=== PATIENT | female | born 1935 | race Caucasian/White ===

== ENCOUNTER → 2016-08-20 | Outpatient (CLI) | payer MEDICARE, OTHER ==
[~2016-08-20] MED LIST: ALLO100T PO; AMIO20TA PO; AMLO10TA2 PO; AMLO5TAB2 PO; ATEN25TA PO; BACITAB3 PO; CEFD1CAP8 PO; COLA100C3 PO; ENOX30IN3 SC; FERR325T PO; FURO20TA2 PO; FURO8INJ IM; HYDR-4266 PO; INSUHUMDS SC; IPRASOL4 INH; ISOS30TA4 PO; LASI20TA PO; LEVO25TA5 PO; LIDOCAINE 1% MDV 20ML VIAL As Ordered ONE; PANT40TA2 PO; PROC1INJ2 IV; TIOT18INH INH; TORS20TA2 PO; VITA100066 PO; [UNRECOGNIZED DRUG - CODE] IV
--- NOTE | 2016-08-20 14:13 | REP ---
DIGITAL DIAGNOSTIC UNILATERAL RIGHT BREAST MAMMOGRAPHY WITH CAD: HISTORY: Patient status post needle biopsy. Marker clip placement views. Comparison mammography July 16 and July 23, 2016. FINDINGS: The marker clip did not deploy during the procedure. Thus it is not on the post marker clip placement views. The needle biopsy tract is visualized however documenting that sampling was performed at the appropriate position in the right breast. The biopsy target was not completely removed. The mammogram is otherwise unremarkable. There is no evidence of hematoma. IMPRESSION: Marker clip failed to deploy. A portion of the biopsy target remains post biopsy. This mammogram was interpreted with the aid of an FDA-approved computer-aided detection system. Signed by Jose Avila MD 08/20/2016 03:18 P
--- NOTE | 2016-08-22 08:46 | REP ---
STEREOTACTIC RIGHT BREAST BIOPSY: The procedure as performed under the direct supervision of Dr. Avila. The patient has a history of an irregular spiculated nodule in the upper outer quadrant of the right breast seen on a previous mammogram from [facility] performed on 07/23/2016. The risks and benefits of the procedure were explained to the patient and informed consent was obtained. A lateral medial approach was utilized. The nodule was localized using stereotactic mammographic guidance. The skin was prepped and draped in a sterile fashion. 1% lidocaine was used as a local anesthetic. A 10-gauge suction assisted Mammotome needle was inserted and six core biopsy samples were obtained. A marker clips was not placed due to technical error. The patient tolerated the procedure well and there were no immediate complications. After the appropriate amount of monitored convalescence, the patient was discharged from the department. Reviewed by MARILYNN Dawn 08/22/2016 03:48 PEdited and Signed by Jose Avila MD 08/22/2016 03:56 P
== END ==
LOC: M RADPRO 12:15
PROVIDERS: ATTEND Surgery
DX: C50.911 Malignant neoplasm of unspecified site of right female breast (principal); Z79.899 Other long term (current) drug therapy; I12.9 Hypertensive chronic kidney disease with stage 1 through stage 4 chronic kidney disease, or unspecified chronic kidney disease; E11.9 Type 2 diabetes mellitus without complications; E78.00 Pure hypercholesterolemia, unspecified; N18.9 Chronic kidney disease, unspecified

== ENCOUNTER → 2016-09-13 | Day surgery (SDC) | payer MEDICARE, OTHER ==
[~2016-09-13] VITALS: Ht 154.9 cm; Wt 79.4 kg
[~2016-09-13] MED LIST changes: +ACETAMINOPHEN TAB 650MG DOSE (2X325MG) PO PRN; +ATENOLOL 25 MG TAB PO ONE; +BUPIVACAINE HCL 0.25% 30 ML VIAL As Ordered ONE; +FISH1000 PO; +HYDROmorphone HCL 1 MG/ML SYRINGE (J1170) IV PRN; +LIDOCAINE 1% SDV INJ 30 ML VIAL As Ordered ONE; +LIDOCAINE 2% INJ 100 MG/5 ML SDV (FOR ANES.) As Ordered ONE; +LR 1,000 ML IV SCH; +METOCLOPRAMIDE INJ 10MG/2ML VIAL (J2765) IV PRN; +MIDAZOLAM INJ 2 MG/2 ML VIAL (J2250) As Ordered ONE; +NORCO, ANEXSIA 5/325MG TABLET (HYDROcodone/ACETAMINOPHEN) PO PRN; +ONDANSETRON 4MG/2ML VIAL (J2405) As Ordered ONE; +ONDANSETRON 4MG/2ML VIAL (J2405) IV PRN; +PERCOCET 5MG/325MG TAB PO PRN; +PHENYLephrine HCL 500 MCG/5 ML (100MCG/ML) SYRINGE (J2370) As Ordered ONE; +POTA10TA34 PO; +PRAV40TA PO; +PROPOFOL 200 MG/20 ML VIAL As Ordered ONE; +VITA100037 PO; +dexameTHASONE 4 MG/ML 1ML VIAL (J1100) As Ordered ONE; +ePHEDrine SULFATE 25 MG/5 ML(5MG/ML) SYRINGE As Ordered ONE; +fentaNYL 100 MCG/2 ML INJECTION (J3010) As Ordered ONE; +fentaNYL 100 MCG/2 ML INJECTION (J3010) IV PRN
[2016-09-13 07:45] VITALS: BP 152/74
[2016-09-13 07:59] LABS: MEAN CORPUSCULAR HEMOGLOBIN 33.4 pg (27.0-33.0); MEAN CORPUSCULAR HGB CONC 32.6 g/dl (32.0-36.5); MEAN CORPUSCULAR VOLUME 102.4 fl (80.0-96.0); RED CELL DISTRIBUTION WIDTH 14.9 % (11.5-14.5); WHITE BLOOD COUNT 9.3 K/mm3 (4.0-10.0)
[2016-09-13 08:30] LABS: CALCIUM LEVEL 8.8 MG/DL (8.8-10.2); CREATININE FOR GFR 1.75 MG/DL (0.55-1.02); GLOMERULAR FILTRATION RATE 29.7 (>32); POTASSIUM SERUM 3.9 MEQ/L (3.5-5.1)
--- NOTE | 2016-09-13 13:02 | ECGEPIP ---
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
[2016-09-13 13:35] VITALS: BP 165/76
--- NOTE | 2016-09-13 14:11 | REP ---
Specimen radiography, single view. History: Patient is status post needle localization directed excisional biopsy. Findings: Specimen radiographic view demonstrates the localizer wire transmitting a centrally located area of increased parenchymal density with slight spiculation. No microcalcifications were seen in this mammographic target. There are two or three microcalcifications or vascular calcifications eccentrically located in the breast specimen. Impression: Specimen radiographic findings as above. No microcalcifications were seen in situ in the original target. Signed by Jose Avila MD 09/13/2016 03:08 P
--- NOTE | 2016-09-13 16:26 | REP ---
RIGHT BREAST LOCALIZATION: The procedure was performed under the direct supervision of Dr. Avila. The patient has a history of an irregular spiculated nodule in the upper outer quadrant of the right breast seen on a previous mammogram from [facility] performed on 07/23/2016. The patient had a stereotactic right breast biopsy performed on 08/20/2016. A marker clip was placed however, failed to deploy. The risks and benefits of the procedure were explained to the patient and informed consent was obtained. A lateral medial approach was utilized. The nodule was localized using mammographic guidance. The skin was prepped and draped in a sterile fashion 1% Xylocaine was used as a local anesthetic. A 5 cm [place] needle wire system was inserted. Followup mammographic images demonstrate good needle placement. The patient tolerated the procedure well and there were no immediate complications. Reviewed by MARILYNN Dawn 09/13/2016 04:29 PEdited and Signed by Jose Avila MD 09/13/2016 04:51 P
--- NOTE | 2016-09-14 05:42 | RO ---
DATE OF PROCEDURE: 09/13/2016 PREOPERATIVE DIAGNOSIS: Infiltrating ductal carcinoma right breast. POSTOPERATIVE DIAGNOSIS: Infiltrating ductal carcinoma right breast. PROCEDURE PERFORMED: Needle-localized right partial mastectomy. SURGEON: Dr. Arthur Acosta. CONVEYOR LOADER: Dr. Bains. ANESTHESIA: General. ESTIMATED BLOOD LOSS: INDICATIONS FOR PROCEDURE: Patient is an 80-year-old woman who on routine mammography was found to have a density in the lateral aspect of the right breast. A biopsy was performed using ultrasound guidance. A marker clip was not placed due to technical difficulties. The biopsy confirmed infiltrating ductal carcinoma and she is now for a needle-localized partial mastectomy. OPERATIVE PROCEDURE: The patient was taken initially to the x-ray department where she had a localizing wire placed. This entered the lateral aspect of the right breast and was directed medially. This was inserted at approximately the 9 o'clock position. The patient was taken to the operating room where she was placed under general endotracheal anesthesia. The patient's right breast and chest wall including the localizing wire were all prepped and draped sterilely. A skin marker was used to outline a radial incision beginning just lateral to the guidewire insertion site and extending toward the edge of the areola. This was approximately 5 cm in length. The skin was incised. The dissection was then carried out primarily using the electrocautery. Dissection proceeded superiorly and inferiorly to elevate the skin off of the underlying breast tissue. The incision was then deepened toward the chest wall and an approximately 6 x 5 x 2.5 cm mass with breast tissue completely surrounding the localizing wire was excised. This was marked using the vector margin marker system. A specimen mammogram was obtained with the [employer] device. The nodule was quite subtle following her biopsy. There did appear to be some slight increased density along the shaft of the localizing wire identified on the image. The specimen was then sent for permanent pathology. The wound was inspected and hemostasis was ensured with electrocautery. The breast tissue was elevated at the level of the pectoral fascia superiorly and inferiorly to allow this to be approximated across the wound. Hemostasis was ensured. The breast tissue was approximated with multiple interrupted simple buried sutures of #2-0 Vicryl. The skin edges were approximated with #4-0 Vicryl and a running subcuticular suture of #4-0 Vicryl. Approximately 10 mL of 0.25% Marcaine were infiltrated along the skin edges. Steri-Strips were applied followed by a bulky bandage. The patient tolerated the procedure well. She was awakened in the operating room, extubated and moved to the recovery room in stable condition. KIM
== END | disposition home or self-care (01) ==
LOC: M SDC 06:54
PROVIDERS: ATTEND Surgery
DX: C50.911 Malignant neoplasm of unspecified site of right female breast (principal); E03.9 Hypothyroidism, unspecified; E78.00 Pure hypercholesterolemia, unspecified; I12.9 Hypertensive chronic kidney disease with stage 1 through stage 4 chronic kidney disease, or unspecified chronic kidney disease; E11.9 Type 2 diabetes mellitus without complications; N18.9 Chronic kidney disease, unspecified; Z79.899 Other long term (current) drug therapy; Z86.73 Personal history of transient ischemic attack (TIA), and cerebral infarction without residual deficits; Z96.653 Presence of artificial knee joint, bilateral
CPT/HCPCS: 19301; 36415; 72265; 76098; 80048; 85027; 88307; 93005; J1100; J2250; J2370; J2405; J3010

== ENCOUNTER → 2016-10-18 | Outpatient (REF) | payer MEDICARE, OTHER ==
[~2016-10-18] MED LIST changes: -ACETAMINOPHEN TAB 650MG DOSE (2X325MG) PO PRN; +AMIO200T PO; -AMIO20TA PO; -ATENOLOL 25 MG TAB PO ONE; +BACITAB PO; -BACITAB3 PO; -BUPIVACAINE HCL 0.25% 30 ML VIAL As Ordered ONE; -COLA100C3 PO; +COLA100C5 PO; +FERR1TAB8 PO; -FERR325T PO; +HYDR-3910 PO; -HYDR-4266 PO; -HYDROmorphone HCL 1 MG/ML SYRINGE (J1170) IV PRN; -LIDOCAINE 1% MDV 20ML VIAL As Ordered ONE; -LIDOCAINE 1% SDV INJ 30 ML VIAL As Ordered ONE; -LIDOCAINE 2% INJ 100 MG/5 ML SDV (FOR ANES.) As Ordered ONE; -LR 1,000 ML IV SCH; -METOCLOPRAMIDE INJ 10MG/2ML VIAL (J2765) IV PRN; -MIDAZOLAM INJ 2 MG/2 ML VIAL (J2250) As Ordered ONE; -NORCO, ANEXSIA 5/325MG TABLET (HYDROcodone/ACETAMINOPHEN) PO PRN; -ONDANSETRON 4MG/2ML VIAL (J2405) As Ordered ONE; -ONDANSETRON 4MG/2ML VIAL (J2405) IV PRN; -PERCOCET 5MG/325MG TAB PO PRN; -PHENYLephrine HCL 500 MCG/5 ML (100MCG/ML) SYRINGE (J2370) As Ordered ONE; -POTA10TA34 PO; +POTA10TA67 PO; -PROPOFOL 200 MG/20 ML VIAL As Ordered ONE; -VITA100037 PO; +VITA100067 PO; -dexameTHASONE 4 MG/ML 1ML VIAL (J1100) As Ordered ONE; -ePHEDrine SULFATE 25 MG/5 ML(5MG/ML) SYRINGE As Ordered ONE; -fentaNYL 100 MCG/2 ML INJECTION (J3010) As Ordered ONE; -fentaNYL 100 MCG/2 ML INJECTION (J3010) IV PRN
[2016-10-19 10:09] LABS: CARCINOEMBRYONIC ANTIGEN 3.4 NG/ML (<2.5)
== END ==
LOC: M LAB REF 16:31
PROVIDERS: ATTEND Internal Medicine Medical Oncology
DX: C50.919 Malignant neoplasm of unspecified site of unspecified female breast (principal)

== ENCOUNTER → 2017-06-03 | Outpatient (REF) ==
[2017-06-03 13:36] LABS: HEMATOCRIT 28.7 % (36.0-47.0); HEMOGLOBIN 9.1 g/dl (12.0-16.0); MEAN CORPUSCULAR HEMOGLOBIN 31.7 pg (27.0-33.0); MEAN CORPUSCULAR HGB CONC 31.7 g/dl (32.0-36.5); PLATELET COUNT, AUTOMATED 208 10^3/uL (150-450); RED BLOOD COUNT 2.87 10^6/uL (4.00-5.40)
[2017-06-03 14:08] LABS: ESTIMATED AVERAGE GLUCOSE 134 MG/DL (60-110); HEMOGLOBIN A1c 6.3 %
[2017-06-03 14:12] LABS: ANION GAP 6 MEQ/L (8-16); BLOOD UREA NITROGEN 43 MG/DL (7-18); CALCIUM LEVEL 8.2 MG/DL (8.8-10.2); CARBON DIOXIDE LEVEL 31 MEQ/L (21-32); CHLORIDE LEVEL 100 MEQ/L (98-107); CREATININE FOR GFR 1.46 MG/DL (0.55-1.30); GLOMERULAR FILTRATION RATE 36.5 (>32); GLUCOSE, FASTING 107 MG/DL (70-100); SODIUM LEVEL 137 MEQ/L (136-145)
[2017-06-03 14:13] LABS: POTASSIUM SERUM 5.3 MEQ/L (3.5-5.1)
== END ==
DX: I50.9 Heart failure, unspecified (principal); D64.9 Anemia, unspecified

== ENCOUNTER → 2017-06-04 | Outpatient (REF) | DX: E87.5 Hyperkalemia (principal); R05 Cough; I50.9 Heart failure, unspecified; I51.7 Cardiomegaly ==

== ENCOUNTER → 2017-06-10 | Outpatient (REF) | payer MEDICARE, OTHER ==
[2017-06-10 12:18] LABS: HEMATOCRIT 22.1 % (36.0-47.0); HEMOGLOBIN 7.1 g/dl (12.0-16.0); MEAN CORPUSCULAR HEMOGLOBIN 31.4 pg (27.0-33.0); MEAN CORPUSCULAR HGB CONC 32.1 g/dl (32.0-36.5); MEAN CORPUSCULAR VOLUME 97.8 fl (80.0-96.0); PLATELET COUNT, AUTOMATED 212 10^3/uL (150-450); RED BLOOD COUNT 2.26 10^6/uL (4.00-5.40); RED CELL DISTRIBUTION WIDTH 16.7 % (11.5-14.5); WHITE BLOOD COUNT 10.2 10^3/uL (4.0-10.0)
[2017-06-10 13:11] LABS: ANION GAP 11 MEQ/L (8-16); BLOOD UREA NITROGEN 68 MG/DL (7-18); CALCIUM LEVEL 7.7 MG/DL (8.8-10.2); CARBON DIOXIDE LEVEL 30 MEQ/L (21-32); CHLORIDE LEVEL 97 MEQ/L (98-107); CREATININE FOR GFR 1.83 MG/DL (0.55-1.30); GLOMERULAR FILTRATION RATE 28.1 (>32); GLUCOSE, FASTING 234 MG/DL (70-100); NT-PRO BNP 34942 PG/ML (<450); POTASSIUM SERUM 4.4 MEQ/L (3.5-5.1); SODIUM LEVEL 138 MEQ/L (136-145); URIC ACID 7.1 MG/DL (2.6-6.0)
== END ==
DX: R91.8 Other nonspecific abnormal finding of lung field (principal); R06.2 Wheezing; M19.011 Primary osteoarthritis, right shoulder; M81.0 Age-related osteoporosis without current pathological fracture
CPT/HCPCS: 84550

== ENCOUNTER → 2017-06-11 | Outpatient (REF) ==
[2017-06-11 11:02] LABS: IRON (FE) 29 UG/DL (50-170); PERCENT SATURATION 16.1 % (13.2-45.0); TOTAL IRON BINDING CAPACITY 180 UG/DL (250-450); TOTAL PROTEIN 7.1 GM/DL (6.4-8.2)
[2017-06-11 11:49] LABS: FOLATE 18.1 NG/ML (>5.4); VITAMIN B12 LEVEL 961 PG/ML (247-911)
[2017-06-11 13:37] LABS: ALBUMIN 2.53 GM/DL (3.29-5.55); ALBUMIN % 35.6 % (55.8-66.1); ALPHA-1-GLOBULIN % 10.6 % (2.9-4.9); ALPHA-1-GLOBULINS 0.75 GM/DL (0.17-0.41); ALPHA-2-GLOBULINS 1.34 GM/DL (0.42-0.99); ALPHA-2-GLOBULINS % 18.9 % (7.1-11.8); BETA-1-GLOBULINS 0.46 GM/DL (0.28-0.60); BETA-1-GLOBULINS % 6.5 % (4.7-7.2); BETA-2-GLOBULINS 0.67 GM/DL (0.19-0.55); BETA-2-GLOBULINS % 9.5 % (3.2-6.5); GAMMA GLOBULIN % 18.9 % (11.1-18.8); GAMMA GLOBULINS 1.34 GM/DL (0.65-1.58)
[2017-06-11 14:54] LABS: THYROID STIMULATING HORMONE 0.732 uIU/ML (0.358-3.740)
== END ==
DX: R53.83 Other fatigue (principal)

== ENCOUNTER → 2017-06-13 | Outpatient (REF) ==
[2017-06-13 12:49] LABS: HEMATOCRIT 23.5 % (36.0-47.0); HEMOGLOBIN 7.3 g/dl (12.0-16.0); MEAN CORPUSCULAR HEMOGLOBIN 31.1 pg (27.0-33.0); MEAN CORPUSCULAR HGB CONC 31.1 g/dl (32.0-36.5); PLATELET COUNT, AUTOMATED 311 10^3/uL (150-450); RED BLOOD COUNT 2.35 10^6/uL (4.00-5.40); RED CELL DISTRIBUTION WIDTH 16.4 % (11.5-14.5); WHITE BLOOD COUNT 10.9 10^3/uL (4.0-10.0)
[2017-06-13 13:49] LABS: ANION GAP 13 MEQ/L (8-16); BLOOD UREA NITROGEN 89 MG/DL (7-18); CALCIUM LEVEL 8.4 MG/DL (8.8-10.2); CARBON DIOXIDE LEVEL 29 MEQ/L (21-32); CHLORIDE LEVEL 94 MEQ/L (98-107); CREATININE FOR GFR 1.59 MG/DL (0.55-1.30); GLOMERULAR FILTRATION RATE 33.1 (>32); GLUCOSE, FASTING 327 MG/DL (70-100); NT-PRO BNP 33050 PG/ML (<450); SODIUM LEVEL 136 MEQ/L (136-145)
[2017-06-13 13:56] LABS: POTASSIUM SERUM 5.2 MEQ/L (3.5-5.1)
== END ==
DX: I50.9 Heart failure, unspecified (principal)

== ENCOUNTER 2017-06-14 13:42 | Outpatient (CLI) | payer MEDICARE, OTHER ==
[2017-06-14] MEDS: diphenhydrAMINE 25 MG CAP PO (16:22)
[2017-06-14] MEDS: ACETAMINOPHEN 325 MG TAB PO (16:22)
[2017-06-14 16:45] LABS: IMMEDIATE SPIN CROSSMATCH 1 1
[2017-06-14] MEDS: FUROSEMIDE 20 MG TAB PO (18:26)
== END 2017-06-14 19:20 ==
LOC: M OPCLI5PR 13:42 → M MS5PR 13:44 → M OPCLI5PR 19:20
DX: D64.9 Anemia, unspecified (principal)
CPT/HCPCS: 36430

== ENCOUNTER → 2017-06-14 | Outpatient (REF) ==
[2017-06-14 17:39] LABS: HEMATOCRIT 24.5 % (36.0-47.0); HEMOGLOBIN 7.4 g/dl (12.0-16.0); MEAN CORPUSCULAR HEMOGLOBIN 30.7 pg (27.0-33.0); MEAN CORPUSCULAR HGB CONC 30.2 g/dl (32.0-36.5); MEAN CORPUSCULAR VOLUME 101.7 fl (80.0-96.0); PLATELET COUNT, AUTOMATED 330 10^3/uL (150-450); RED BLOOD COUNT 2.41 10^6/uL (4.00-5.40); RED CELL DISTRIBUTION WIDTH 16.5 % (11.5-14.5); WHITE BLOOD COUNT 10.8 10^3/uL (4.0-10.0)
== END ==
DX: D64.9 Anemia, unspecified (principal)

== ENCOUNTER 2017-06-18 14:25 | Outpatient (CLI) | payer MEDICARE, OTHER ==
[~2017-06-18 14:25] MED LIST changes: +ACETAMINOPHEN 325 MG TAB PO; -ALLO100T PO; -AMIO200T PO; -AMLO10TA2 PO; -AMLO5TAB2 PO; -ATEN25TA PO; -BACITAB PO; -CEFD1CAP8 PO; -COLA100C5 PO; -ENOX30IN3 SC; -FERR1TAB8 PO; -FISH1000 PO; -FURO20TA2 PO; -FURO8INJ IM; +FUROSEMIDE 20 MG TAB PO; -HYDR-3910 PO; -INSUHUMDS SC; -IPRASOL4 INH; -ISOS30TA4 PO; -LASI20TA PO; -LEVO25TA5 PO; -PANT40TA2 PO; -POTA10TA67 PO; -PRAV40TA PO; -PROC1INJ2 IV; -TIOT18INH INH; -TORS20TA2 PO; -VITA100066 PO; -VITA100067 PO; -[UNRECOGNIZED DRUG - CODE] IV; +diphenhydrAMINE 25 MG CAP PO
[2017-06-18] MEDS: diphenhydrAMINE 12.5MG/5ML ELIXIR UDC PO (15:29)
[2017-06-18] MEDS: FUROSEMIDE 200 MG/20 ML ORAL SOL 60ML BTL PO (15:30)
[2017-06-18] MEDS: ACETAMINOPHEN 325 MG/10.15 ML UDC PO (15:32)
== END 2017-06-18 18:15 | disposition home or self-care (01) ==
LOC: M INFU 14:25
DX: D64.9 Anemia, unspecified (principal); Z79.890 Hormone replacement therapy; Z79.899 Other long term (current) drug therapy

== ENCOUNTER → 2017-06-18 | Outpatient (REF) | payer MEDICARE, OTHER ==
[2017-06-18 15:44] LABS: IMMEDIATE SPIN CROSSMATCH 1 1
== END ==
DX: D64.9 Anemia, unspecified (principal); I50.9 Heart failure, unspecified; Z79.899 Other long term (current) drug therapy; Z79.890 Hormone replacement therapy
CPT/HCPCS: 36430

== ENCOUNTER → 2017-06-18 | Outpatient (REF) ==
[2017-06-18 09:58] LABS: HEMOGLOBIN 8.3 g/dl (12.0-16.0); MEAN CORPUSCULAR HGB CONC 30.7 g/dl (32.0-36.5); MEAN CORPUSCULAR VOLUME 100.7 fl (80.0-96.0); PLATELET COUNT, AUTOMATED 347 10^3/uL (150-450); RED BLOOD COUNT 2.68 10^6/uL (4.00-5.40); RED CELL DISTRIBUTION WIDTH 17.6 % (11.5-14.5); WHITE BLOOD COUNT 13.1 10^3/uL (4.0-10.0)
[2017-06-18 10:28] LABS: ANION GAP 6 MEQ/L (8-16); BLOOD UREA NITROGEN 66 MG/DL (7-18); CALCIUM LEVEL 7.9 MG/DL (8.8-10.2); CARBON DIOXIDE LEVEL 37 MEQ/L (21-32); CHLORIDE LEVEL 96 MEQ/L (98-107); CREATININE FOR GFR 1.18 MG/DL (0.55-1.30); GLOMERULAR FILTRATION RATE 46.7 (>32); GLUCOSE, FASTING 135 MG/DL (70-100); NT-PRO BNP 24098 PG/ML (<450); SODIUM LEVEL 139 MEQ/L (136-145)
[2017-06-18 10:30] LABS: POTASSIUM SERUM 5.3 MEQ/L (3.5-5.1)
== END ==
DX: D64.9 Anemia, unspecified (principal)

== ENCOUNTER → 2017-06-19 | Outpatient (REF) ==
[2017-06-19 12:18] LABS: HEMATOCRIT 33.5 % (36.0-47.0); MEAN CORPUSCULAR HEMOGLOBIN 30.8 pg (27.0-33.0); MEAN CORPUSCULAR HGB CONC 31.6 g/dl (32.0-36.5); MEAN CORPUSCULAR VOLUME 97.4 fl (80.0-96.0); PLATELET COUNT, AUTOMATED 343 10^3/uL (150-450); RED BLOOD COUNT 3.44 10^6/uL (4.00-5.40); RED CELL DISTRIBUTION WIDTH 18.2 % (11.5-14.5); WHITE BLOOD COUNT 14.3 10^3/uL (4.0-10.0)
[2017-06-19 12:32] LABS: HEMOGLOBIN 10.6 g/dl (12.0-16.0)
== END ==
DX: D64.9 Anemia, unspecified (principal)

== ENCOUNTER → 2017-06-21 | Outpatient (REF) | payer OTHER, MEDICARE ==
[2017-06-21 09:13] LABS: HEMATOCRIT 30.2 % (36.0-47.0); HEMOGLOBIN 9.6 g/dl (12.0-16.0); MEAN CORPUSCULAR HEMOGLOBIN 30.8 pg (27.0-33.0); MEAN CORPUSCULAR HGB CONC 31.8 g/dl (32.0-36.5); MEAN CORPUSCULAR VOLUME 96.8 fl (80.0-96.0); PLATELET COUNT, AUTOMATED 297 10^3/uL (150-450); RED BLOOD COUNT 3.12 10^6/uL (4.00-5.40); RED CELL DISTRIBUTION WIDTH 17.4 % (11.5-14.5); WHITE BLOOD COUNT 14.8 10^3/uL (4.0-10.0)
== END ==
DX: D64.9 Anemia, unspecified (principal)

== ENCOUNTER 2017-06-22 23:59 | Inpatient (IN) | payer MEDICARE, OTHER ==
[2017-06-23] MEDS: PIPERACILLIN/TAZOBACTAM SOD 3.375 GM in APPROPRIATE DILUENT 1 EA IV ×2 (00:45→06:45)
[2017-06-23 00:48] LABS: BASO # 0.1 10^3/uL (0.0-0.2); BASO % 0.3 % (0.0-1.0); EOS # 0.1 10^3/uL (0.0-0.50); EOS % 0.3 % (0.0-3.0); HEMATOCRIT 30.5 % (36.0-47.0); HEMOGLOBIN 9.8 g/dl (12.0-16.0); IMMATURE GRANULOCYTE % 0.9 % (0-3.0); LYMPH # 0.8 10^3/uL (1.5-4.5); LYMPH % 2.5 % (24.0-44.0); MEAN CORPUSCULAR HEMOGLOBIN 30.5 pg (27.0-33.0); MEAN CORPUSCULAR HGB CONC 32.1 g/dl (32.0-36.5); MONO # 1.7 10^3/uL (0.0-0.8); MONO % 5.5 % (0.0-5.0); NEUTROPHILS % 90.5 % (36.0-66.0); PLATELET COUNT, AUTOMATED 279 10^3/uL (150-450); RED BLOOD COUNT 3.21 10^6/uL (4.00-5.40); RED CELL DISTRIBUTION WIDTH 17.1 % (11.5-14.5)
[2017-06-23 00:54] LABS: NEUTROPHILS # 27.6 10^3/uL (1.8-7.7); POS COUNT POS FLAG; POSITIVE DIFF POS FLAG
[2017-06-23] MEDS ORDERED: ONDANSETRON 4MG/2ML VIAL (J2405) As Ordered (01:06)
[2017-06-23 01:10] LABS: ANION GAP 6 MEQ/L (8-16); BLOOD UREA NITROGEN 54 MG/DL (7-18); CALCIUM LEVEL 8.9 MG/DL (8.8-10.2); CARBON DIOXIDE LEVEL 34 MEQ/L (21-32); CHLORIDE LEVEL 93 MEQ/L (98-107); CREATININE FOR GFR 1.49 MG/DL (0.55-1.30); GLOMERULAR FILTRATION RATE 35.7 (>32); GLUCOSE, FASTING 172 MG/DL (70-100); POTASSIUM SERUM 4.7 MEQ/L (3.5-5.1); SODIUM LEVEL 133 MEQ/L (136-145)
[2017-06-23 01:13] LABS: WHITE BLOOD COUNT 30.4 10^3/uL (4.0-10.0)
[2017-06-23 01:14] LABS: LACTIC ACID SEPSIS PROTOCOL 1.1 MMOL/L (0.4-2.0)
[2017-06-23] MEDS: ONDANSETRON 4MG/2ML VIAL (J2405) IV (01:15)
[2017-06-23] MEDS: NS 500 ML IV (01:45)
[2017-06-23] MEDS ORDERED: ISOVUE-370 76% 100ML VIAL (Q9967) As Ordered (01:46)
[2017-06-23] MEDS ORDERED: METOPROLOL 5 MG/5 ML VIAL IV (01:49)
[2017-06-23] MEDS ORDERED: DIGOXIN INJ 0.5 MG/2 ML AMP (J1160) As Ordered (01:54)
[2017-06-23] MEDS ORDERED: NORCO 5/325MG TABLET (BULK FOR ED) PO (02:00)
[2017-06-23] MEDS: DIGOXIN INJ 0.5 MG/2 ML AMP (J1160) IV (02:01)
[2017-06-23] MEDS: AMIODARONE HCL 150 MG in APPROPRIATE DILUENT 1 EA IV (02:38)
[2017-06-23] MEDS: DILUENT IV (03:08)
[2017-06-23] MEDS: AMIODARONE HCL IV (03:08)
[2017-06-23] MEDS: FUROSEMIDE 100 MG/10 ML VIAL (J1940) IV (03:15)
[2017-06-23] MEDS ORDERED: ACETAMINOPHEN 650 MG SUPP As Ordered (04:23)
[2017-06-23] MEDS: ACETAMINOPHEN 650 MG SUPP PR ×2 (04:41→05:45)
[2017-06-23] MEDS: METOPROLOL 5 MG/5 ML VIAL IV ×2 (06:20→06:27)
[2017-06-23 07:40] LABS: ABG BASE EXCESS 6.4 (-2.0-2.0); ABG HCO3 31.9 MEQ/L (22.0-26.0); ABG O2 SATURATION 99.9 % (95.0-99.0); ABG PARTIAL PRESSURE CO2 50.2 mmHg (35.0-45.0); ABG PARTIAL PRESSURE O2 221.9 mmHg (75.0-100.0); ABG STANDARD HCO3 30.3 MEQ/L (22.0-26.0); ABG TOTAL CO2 33.4 MEQ/L (23.0-31.0); ABG pH (ARTERIAL) 7.421 UNITS (7.350-7.450)
[2017-06-23 07:54] LABS: KETONE, URINE AUTO RFX NEGATIVE (NEGATIVE); NITRITE, URINE AUTO RFX NEGATIVE (NEGATIVE); RBC, URINE AUTO RFX 10 /HPF (0-3); SQUAM EPITHELIAL CELL UR AURFX 1 /HPF (0-6)
[2017-06-23 07:55] LABS: LEUKOCYTE ESTERASE UR AUTO RFX 3+ (NEGATIVE); WBC, URINE AUTO RFX TNTC /HPF (0-3)
[2017-06-23 08:06] LABS: CHLORIDE,RANDOM URINE 26 MEQ/L; CREATININE,RANDOM URINE 42.5 MG/DL; POTASSIUM RANDOM URINE 40.8 MEQ/L; SODIUM,RANDOM URINE 22 MEQ/L; TOTAL PROTEIN,RANDOM URINE 88.9 MG/DL (0.0-12.0)
[2017-06-23 08:37] LABS: OSMOLALITY URINE 368 MOSM/KG (500-800)
[2017-06-23] MEDS ORDERED: MOM 30ML SUSPENSION UDC PO (08:45)
[2017-06-23] MEDS ORDERED: BISACODYL 10 MG SUPP PR (08:45)
[2017-06-23] MEDS ORDERED: ISOSORBIDE MON. (ISMO,MONOKET) 20 MG TAB PEG (09:00)
[2017-06-23] MEDS ORDERED: ONDANSETRON 4MG/2ML VIAL (J2405) IV (09:00)
[2017-06-23 09:02] LABS: SLIDE REVIEW Report; SOURCE PERIPHERAL SMEAR
[2017-06-23 09:16] LABS: REASON FOR REVIEW WBC/LEUKEMIA/BLAST
[2017-06-23 09:25] LABS: ERYTHROCYTE SEDIMENTATION RATE 107 mm/hr (0-30)
[2017-06-23 09:32] LABS: ALBUMIN 2.1 GM/DL (3.2-5.2); ALKALINE PHOSPHATASE 118 U/L (45-117); ALT/SGPT 20 U/L (12-78); AST/SGOT 14 U/L (7-37); BILIRUBIN,DIRECT 0.4 MG/DL (0.0-0.2); BILIRUBIN,TOTAL 0.7 MG/DL (0.2-1.0); CPK CREATINE PHOSPHOKINASE 29 U/L (26-192); T UPTAKE 43 % (30-39); THYROXINE (T4) 9.3 UG/DL (4.5-12.0); TOTAL PROTEIN 7.4 GM/DL (6.4-8.2); TROPONIN I 0.05 NG/ML (< 0.10)
[2017-06-23 09:44] LABS: CK-MB VALUE MASS 1.2 NG/ML (0.0-3.6); MB/CK RELATIVE INDEX 4.13 (< OR =4); NT-PRO BNP 70318 PG/ML (<450)
[2017-06-23] MEDS ORDERED: PILL CUTTER/CRUSHER XX (09:45)
[2017-06-23] MEDS ORDERED: IPRATROPIUM 0.5MG/ALBUTEROL 2.5MG INH SOL UD 3ML (DUONEB)(J7620) NEB (11:00)
[2017-06-23] MEDS: dexameTHASONE 20 MG/5 ML VIAL (J1100) IV ×2 (11:00→18:16)
[2017-06-23] MEDS: IPRATROPIUM 0.5MG/ALBUTEROL 2.5MG INH SOL UD 3ML (DUONEB)(J7620) NEB ×2 (11:39→19:31)
[2017-06-23] MEDS: CitaloPRAM (CeleXA) 10 MG TABLET PEG (11:51)
[2017-06-23] MEDS: PANTOPRAZOLE 40MG INJ (PROTONIX) (C9113) IV (11:52)
[2017-06-23] MEDS: LACTOBACILLUS ACIDOPHILUS CAP (BACID) PEG ×3 (11:52→20:08)
[2017-06-23] MEDS: LEVOTHYROXINE 25MCG TABLET (0.025MG) PEG (11:52)
[2017-06-23] MEDS: SENOKOT S TAB PEG ×2 (11:52→20:08)
[2017-06-23] MEDS: MEROPENEM INJ 1 GM in APPROPRIATE DILUENT 1 EA IV ×2 (11:53→22:14)
[2017-06-23] MEDS: METOPROLOL TART 25 MG TABLET PEG ×2 (11:54→20:09)
[2017-06-23] MEDS: VANCOMYCIN HCL 1,000 MG, VIAL MATE ADAPTER 1 EACH in D5W 250 ML IV (12:34)
[2017-06-23 13:23] LABS: CPK CREATINE PHOSPHOKINASE 24 U/L (26-192); MB/CK RELATIVE INDEX 4.16 (< OR =4); TROPONIN I 0.04 NG/ML (< 0.10)
[2017-06-23] MEDS: VANCOMYCIN HCL 500 MG in D5W MINI-BAG PLUS 100 ML IV (14:50)
[2017-06-23] MEDS: HEPARIN SOD (PORCINE) 5000 UNITS/ML VIAL SC ×2 (15:08→22:14)
[2017-06-23] MEDS: NS 1,000 ML IV ×2 (16:00→18:00)
[2017-06-23] MEDS: FERROUS SULFATE 300MG/5ML UDC LIQUID PEG (20:08)
[2017-06-23] MEDS: SIMVASTATIN 10 MG TAB PEG (20:08)
[2017-06-24] MEDS: IPRATROPIUM 0.5MG/ALBUTEROL 2.5MG INH SOL UD 3ML (DUONEB)(J7620) NEB ×4 (01:29→19:40)
[2017-06-24] MEDS: NS 1,000 ML IV (02:12)
[2017-06-24] MEDS: dexameTHASONE 20 MG/5 ML VIAL (J1100) IV ×2 (02:14→11:00)
[2017-06-24 04:32] LABS: HEMATOCRIT 29.5 % (36.0-47.0); HEMOGLOBIN 9.1 g/dl (12.0-16.0); MEAN CORPUSCULAR HEMOGLOBIN 30.2 pg (27.0-33.0); MEAN CORPUSCULAR HGB CONC 30.8 g/dl (32.0-36.5); PLATELET COUNT, AUTOMATED 215 10^3/uL (150-450); RED BLOOD COUNT 3.01 10^6/uL (4.00-5.40); WHITE BLOOD COUNT 19.9 10^3/uL (4.0-10.0)
[2017-06-24 04:55] LABS: ALBUMIN 1.8 GM/DL (3.2-5.2); ALBUMIN/GLOBULIN RATIO 0.37 (1.00-1.93); ALKALINE PHOSPHATASE 104 U/L (45-117); ALT/SGPT 13 U/L (12-78); ANION GAP 9 MEQ/L (8-16); AST/SGOT 11 U/L (7-37); BILIRUBIN,TOTAL 0.4 MG/DL (0.2-1.0); BLOOD UREA NITROGEN 64 MG/DL (7-18); CALCIUM LEVEL 8.5 MG/DL (8.8-10.2); CARBON DIOXIDE LEVEL 29 MEQ/L (21-32); CHLORIDE LEVEL 98 MEQ/L (98-107); CREATININE FOR GFR 2.09 MG/DL (0.55-1.30); GLOMERULAR FILTRATION RATE 24.1 (>32); GLUCOSE, FASTING 133 MG/DL (70-100); MAGNESIUM LEVEL 2.5 MG/DL (1.8-2.4); SODIUM LEVEL 136 MEQ/L (136-145); TOTAL PROTEIN 6.7 GM/DL (6.4-8.2)
[2017-06-24 04:57] LABS: POTASSIUM SERUM 5.3 MEQ/L (3.5-5.1)
[2017-06-24] MEDS: LEVOTHYROXINE 25MCG TABLET (0.025MG) PEG (06:16)
[2017-06-24] MEDS: HEPARIN SOD (PORCINE) 5000 UNITS/ML VIAL SC ×3 (06:16→22:16)
[2017-06-24] MEDS: METOPROLOL TART 25 MG TABLET PEG ×2 (09:00→20:31)
[2017-06-24] MEDS: CHLORHEXIDINE ORAL RINSE 0.12%/15ML 120ML BOTTLE SSP ×3 (09:00→20:31)
[2017-06-24] MEDS: PANTOPRAZOLE 40MG INJ (PROTONIX) (C9113) IV (09:00)
[2017-06-24] MEDS: LACTOBACILLUS ACIDOPHILUS CAP (BACID) PEG ×3 (09:00→20:31)
[2017-06-24] MEDS: CitaloPRAM (CeleXA) 10 MG TABLET PEG (09:00)
[2017-06-24] MEDS: SENOKOT S TAB PEG ×2 (09:05→20:31)
[2017-06-24] MEDS: MEROPENEM INJ 1 GM in APPROPRIATE DILUENT 1 EA IV (11:21)
[2017-06-24] MEDS: VANCOMYCIN HCL 1,000 MG, VIAL MATE ADAPTER 1 EACH in D5W 250 ML IV (12:34)
[2017-06-24 18:51] LABS: ANION GAP 13 MEQ/L (8-16); BLOOD UREA NITROGEN 78 MG/DL (7-18); CARBON DIOXIDE LEVEL 26 MEQ/L (21-32); CHLORIDE LEVEL 96 MEQ/L (98-107); CREATININE FOR GFR 2.56 MG/DL (0.55-1.30); GLOMERULAR FILTRATION RATE 19.1 (>32); GLUCOSE, FASTING 205 MG/DL (70-100); SODIUM LEVEL 135 MEQ/L (136-145)
[2017-06-24 18:52] LABS: POTASSIUM SERUM 5.3 MEQ/L (3.5-5.1)
[2017-06-24] MEDS: FERROUS SULFATE 300MG/5ML UDC LIQUID PEG (20:31)
[2017-06-24] MEDS: SIMVASTATIN 10 MG TAB PEG (20:31)
[2017-06-24] MEDS: dexameTHASONE 4 MG/ML 1ML VIAL (J1100) IV (22:16)
[2017-06-24] MEDS: AMPICILLIN SOD/SULBACTAM SOD 1.5 GM in D5W MINI-BAG PLUS 50 ML IV (22:17)
[2017-06-25] MEDS: IPRATROPIUM 0.5MG/ALBUTEROL 2.5MG INH SOL UD 3ML (DUONEB)(J7620) NEB ×4 (01:35→20:02)
[2017-06-25 05:07] LABS: HEMATOCRIT 28.3 % (36.0-47.0); HEMOGLOBIN 8.8 g/dl (12.0-16.0); MEAN CORPUSCULAR HEMOGLOBIN 30.1 pg (27.0-33.0); MEAN CORPUSCULAR HGB CONC 31.1 g/dl (32.0-36.5); MEAN CORPUSCULAR VOLUME 96.9 fl (80.0-96.0); PLATELET COUNT, AUTOMATED 224 10^3/uL (150-450); RED BLOOD COUNT 2.92 10^6/uL (4.00-5.40); RED CELL DISTRIBUTION WIDTH 17.1 % (11.5-14.5); WHITE BLOOD COUNT 13.6 10^3/uL (4.0-10.0)
[2017-06-25 05:24] LABS: ALBUMIN 1.9 GM/DL (3.2-5.2); ALBUMIN/GLOBULIN RATIO 0.36 (1.00-1.93); ALKALINE PHOSPHATASE 105 U/L (45-117); ALT/SGPT 18 U/L (12-78); ANION GAP 12 MEQ/L (8-16); AST/SGOT 16 U/L (7-37); BILIRUBIN,TOTAL 0.4 MG/DL (0.2-1.0); BLOOD UREA NITROGEN 89 MG/DL (7-18); CALCIUM LEVEL 8.3 MG/DL (8.8-10.2); CARBON DIOXIDE LEVEL 24 MEQ/L (21-32); CHLORIDE LEVEL 96 MEQ/L (98-107); CREATININE FOR GFR 2.83 MG/DL (0.55-1.30); GLUCOSE, FASTING 244 MG/DL (70-100); MAGNESIUM LEVEL 2.8 MG/DL (1.8-2.4); POTASSIUM SERUM 5.1 MEQ/L (3.5-5.1); SODIUM LEVEL 132 MEQ/L (136-145); TOTAL PROTEIN 7.2 GM/DL (6.4-8.2)
[2017-06-25] MEDS: LEVOTHYROXINE 25MCG TABLET (0.025MG) PEG (06:23)
[2017-06-25] MEDS: HEPARIN SOD (PORCINE) 5000 UNITS/ML VIAL SC ×3 (06:23→23:35)
[2017-06-25] MEDS: LACTOBACILLUS ACIDOPHILUS CAP (BACID) PEG ×3 (08:01→20:12)
[2017-06-25] MEDS: PANTOPRAZOLE 40MG INJ (PROTONIX) (C9113) IV (08:01)
[2017-06-25] MEDS: METOPROLOL TART 25 MG TABLET PEG ×2 (08:02→20:13)
[2017-06-25] MEDS: CitaloPRAM (CeleXA) 10 MG TABLET PEG (08:02)
[2017-06-25] MEDS: SENOKOT S TAB PEG ×2 (08:02→20:12)
[2017-06-25] MEDS: CHLORHEXIDINE ORAL RINSE 0.12%/15ML 120ML BOTTLE SSP ×3 (08:02→20:12)
[2017-06-25] MEDS: AMPICILLIN SOD/SULBACTAM SOD 1.5 GM in D5W MINI-BAG PLUS 50 ML IV ×2 (12:34→23:35)
[2017-06-25] MEDS: dexameTHASONE 4 MG/ML 1ML VIAL (J1100) IV ×2 (12:34→23:35)
[2017-06-25] MEDS: SIMVASTATIN 10 MG TAB PEG (20:12)
[2017-06-25] MEDS: FERROUS SULFATE 300MG/5ML UDC LIQUID PEG (20:12)
[2017-06-26] MEDS: IPRATROPIUM 0.5MG/ALBUTEROL 2.5MG INH SOL UD 3ML (DUONEB)(J7620) NEB ×4 (01:50→21:17)
[2017-06-26] MEDS: HEPARIN SOD (PORCINE) 5000 UNITS/ML VIAL SC ×3 (06:19→22:45)
[2017-06-26] MEDS: LEVOTHYROXINE 25MCG TABLET (0.025MG) PEG (06:19)
[2017-06-26 07:07] LABS: HEMATOCRIT 29.1 % (36.0-47.0); HEMOGLOBIN 9.3 g/dl (12.0-16.0); MEAN CORPUSCULAR HEMOGLOBIN 30.2 pg (27.0-33.0); MEAN CORPUSCULAR VOLUME 94.5 fl (80.0-96.0); PLATELET COUNT, AUTOMATED 217 10^3/uL (150-450); RED BLOOD COUNT 3.08 10^6/uL (4.00-5.40); RED CELL DISTRIBUTION WIDTH 16.9 % (11.5-14.5); WHITE BLOOD COUNT 9.7 10^3/uL (4.0-10.0)
[2017-06-26 07:35] LABS: ALBUMIN/GLOBULIN RATIO 0.38 (1.00-1.93); ALKALINE PHOSPHATASE 100 U/L (45-117); ALT/SGPT 32 U/L (12-78); ANION GAP 14 MEQ/L (8-16); AST/SGOT 24 U/L (7-37); BILIRUBIN,TOTAL 0.4 MG/DL (0.2-1.0); BLOOD UREA NITROGEN 116 MG/DL (7-18); CALCIUM LEVEL 8.4 MG/DL (8.8-10.2); CARBON DIOXIDE LEVEL 24 MEQ/L (21-32); CHLORIDE LEVEL 93 MEQ/L (98-107); CREATININE FOR GFR 3.39 MG/DL (0.55-1.30); GLOMERULAR FILTRATION RATE 13.8 (>32); GLUCOSE, FASTING 302 MG/DL (70-100); MAGNESIUM LEVEL 2.7 MG/DL (1.8-2.4); SODIUM LEVEL 131 MEQ/L (136-145); TOTAL PROTEIN 7.2 GM/DL (6.4-8.2)
[2017-06-26 07:41] LABS: POTASSIUM SERUM 5.3 MEQ/L (3.5-5.1)
[2017-06-26] MEDS: LACTOBACILLUS ACIDOPHILUS CAP (BACID) PEG ×3 (08:54→20:20)
[2017-06-26] MEDS: PANTOPRAZOLE 40MG INJ (PROTONIX) (C9113) IV (08:54)
[2017-06-26] MEDS: SENOKOT S TAB PEG ×2 (08:55→20:19)
[2017-06-26] MEDS: METOPROLOL TART 25 MG TABLET PEG ×2 (08:55→20:20)
[2017-06-26] MEDS: CHLORHEXIDINE ORAL RINSE 0.12%/15ML 120ML BOTTLE SSP ×3 (08:55→20:20)
[2017-06-26] MEDS: CitaloPRAM (CeleXA) 10 MG TABLET PEG (08:55)
[2017-06-26] MEDS: AMPICILLIN SOD/SULBACTAM SOD 1.5 GM in D5W MINI-BAG PLUS 50 ML IV ×2 (11:19→22:46)
[2017-06-26] MEDS: dexameTHASONE 4 MG/ML 1ML VIAL (J1100) IV (11:20)
[2017-06-26 13:49] LABS: AMORPHOUS SEDIMENT RFX SMALL (NEGATIVE); KETONE, URINE AUTO RFX NEGATIVE (NEGATIVE); LEUKOCYTE ESTERASE UR AUTO RFX TRACE (NEGATIVE); NITRITE, URINE AUTO RFX NEGATIVE (NEGATIVE); RBC, URINE AUTO RFX 8 /HPF (0-3); SPECIFIC GRAVITY UR AUTO RFX 1.013 (1.002-1.035); SQUAM EPITHELIAL CELL UR AURFX 0 /HPF (0-6); WBC, URINE AUTO RFX 11 /HPF (0-3)
[2017-06-26] MEDS ORDERED: HEPARIN 1,000 UNITS/ML 10ML VIAL (FOR RADIOLOGY& DIALYSIS ONLY) As Ordered (15:32)
[2017-06-26] MEDS ORDERED: LIDOCAINE 2% MDV 20 ML VIAL As Ordered (15:32)
[2017-06-26] MEDS: SIMVASTATIN 10 MG TAB PEG (20:19)
[2017-06-26] MEDS: FERROUS SULFATE 300MG/5ML UDC LIQUID PEG (20:20)
[2017-06-26 20:39] LABS: ANION GAP 13 MEQ/L (8-16); BLOOD UREA NITROGEN 124 MG/DL (7-18); CARBON DIOXIDE LEVEL 26 MEQ/L (21-32); CHLORIDE LEVEL 94 MEQ/L (98-107); CREATININE FOR GFR 3.46 MG/DL (0.55-1.30); GLOMERULAR FILTRATION RATE 13.5 (>32); GLUCOSE, FASTING 345 MG/DL (70-100); SODIUM LEVEL 133 MEQ/L (136-145)
[2017-06-26 20:40] LABS: POTASSIUM SERUM 5.3 MEQ/L (3.5-5.1)
[2017-06-27] MEDS: IPRATROPIUM 0.5MG/ALBUTEROL 2.5MG INH SOL UD 3ML (DUONEB)(J7620) NEB ×3 (01:59→20:00)
[2017-06-27] MEDS: CitaloPRAM (CeleXA) 10 MG TABLET PEG (05:54)
[2017-06-27] MEDS: PANTOPRAZOLE 40MG INJ (PROTONIX) (C9113) IV (05:54)
[2017-06-27] MEDS: CHLORHEXIDINE ORAL RINSE 0.12%/15ML 120ML BOTTLE SSP ×3 (05:54→20:24)
[2017-06-27] MEDS: HEPARIN SOD (PORCINE) 5000 UNITS/ML VIAL SC ×2 (05:54→16:32)
[2017-06-27] MEDS: LACTOBACILLUS ACIDOPHILUS CAP (BACID) PEG ×3 (05:55→20:22)
[2017-06-27] MEDS: LEVOTHYROXINE 25MCG TABLET (0.025MG) PEG (05:55)
[2017-06-27] MEDS: METOPROLOL TART 25 MG TABLET PEG ×2 (05:55→20:23)
[2017-06-27] MEDS: SENOKOT S TAB PEG ×2 (05:56→20:23)
[2017-06-27 06:36] LABS: HEMATOCRIT 28.2 % (36.0-47.0); MEAN CORPUSCULAR HEMOGLOBIN 29.8 pg (27.0-33.0); MEAN CORPUSCULAR HGB CONC 31.9 g/dl (32.0-36.5); MEAN CORPUSCULAR VOLUME 93.4 fl (80.0-96.0); PLATELET COUNT, AUTOMATED 193 10^3/uL (150-450); RED BLOOD COUNT 3.02 10^6/uL (4.00-5.40); RED CELL DISTRIBUTION WIDTH 16.8 % (11.5-14.5); WHITE BLOOD COUNT 8.9 10^3/uL (4.0-10.0)
[2017-06-27 07:00] LABS: ALBUMIN 2.1 GM/DL (3.2-5.2); ALBUMIN/GLOBULIN RATIO 0.43 (1.00-1.93); ALKALINE PHOSPHATASE 93 U/L (45-117); ALT/SGPT 38 U/L (12-78); ANION GAP 14 MEQ/L (8-16); AST/SGOT 22 U/L (7-37); BILIRUBIN,TOTAL 0.4 MG/DL (0.2-1.0); BLOOD UREA NITROGEN 138 MG/DL (7-18); C REACTIVE PROTEIN QUANTITATIV 8.31 MG/DL (0.00-0.30); CALCIUM LEVEL 8.2 MG/DL (8.8-10.2); CARBON DIOXIDE LEVEL 24 MEQ/L (21-32); CHLORIDE LEVEL 93 MEQ/L (98-107); CREATININE FOR GFR 3.45 MG/DL (0.55-1.30); GLOMERULAR FILTRATION RATE 13.5 (>32); GLUCOSE, FASTING 285 MG/DL (70-100); MAGNESIUM LEVEL 2.9 MG/DL (1.8-2.4); POTASSIUM SERUM 5.1 MEQ/L (3.5-5.1); SODIUM LEVEL 131 MEQ/L (136-145)
[2017-06-27] MEDS: AUGMENTIN 500 MG TAB PO ×2 (09:18→20:22)
[2017-06-27] MEDS: HEPARIN 1,000 UNITS/ML 10ML VIAL (FOR RADIOLOGY& DIALYSIS ONLY) XX (15:00)
[2017-06-27] MEDS: HEPARIN 1,000 UNITS/ML 10ML VIAL (FOR RADIOLOGY& DIALYSIS ONLY) IV (15:00)
[2017-06-27] MEDS: FERROUS SULFATE 300MG/5ML UDC LIQUID PEG (20:22)
[2017-06-27] MEDS: SIMVASTATIN 10 MG TAB PEG (20:23)
[2017-06-27] MEDS: ACETAMINOPHEN TAB 650MG DOSE (2X325MG) PEG (20:24)
[2017-06-28] MEDS: HEPARIN SOD (PORCINE) 5000 UNITS/ML VIAL SC ×4 (00:05→21:10)
[2017-06-28] MEDS: IPRATROPIUM 0.5MG/ALBUTEROL 2.5MG INH SOL UD 3ML (DUONEB)(J7620) NEB ×4 (01:39→20:00)
[2017-06-28 06:25] LABS: HEMATOCRIT 28.6 % (36.0-47.0); MEAN CORPUSCULAR HEMOGLOBIN 29.3 pg (27.0-33.0); MEAN CORPUSCULAR HGB CONC 31.5 g/dl (32.0-36.5); MEAN CORPUSCULAR VOLUME 93.2 fl (80.0-96.0); PLATELET COUNT, AUTOMATED 186 10^3/uL (150-450); RED BLOOD COUNT 3.07 10^6/uL (4.00-5.40); RED CELL DISTRIBUTION WIDTH 17.2 % (11.5-14.5); WHITE BLOOD COUNT 12.2 10^3/uL (4.0-10.0)
[2017-06-28] MEDS: LEVOTHYROXINE 25MCG TABLET (0.025MG) PEG (06:46)
[2017-06-28 06:51] LABS: ALBUMIN 2.1 GM/DL (3.2-5.2); ALBUMIN/GLOBULIN RATIO 0.45 (1.00-1.93); ALKALINE PHOSPHATASE 101 U/L (45-117); ALT/SGPT 39 U/L (12-78); ANION GAP 11 MEQ/L (8-16); AST/SGOT 20 U/L (7-37); BILIRUBIN,TOTAL 0.4 MG/DL (0.2-1.0); BLOOD UREA NITROGEN 90 MG/DL (7-18); C REACTIVE PROTEIN QUANTITATIV 4.61 MG/DL (0.00-0.30); CARBON DIOXIDE LEVEL 27 MEQ/L (21-32); CHLORIDE LEVEL 97 MEQ/L (98-107); GLOMERULAR FILTRATION RATE 20.6 (>32); GLUCOSE, FASTING 262 MG/DL (70-100); MAGNESIUM LEVEL 2.4 MG/DL (1.8-2.4); POTASSIUM SERUM 4.2 MEQ/L (3.5-5.1); SODIUM LEVEL 135 MEQ/L (136-145); TOTAL PROTEIN 6.8 GM/DL (6.4-8.2)
[2017-06-28] MEDS: CHLORHEXIDINE ORAL RINSE 0.12%/15ML 120ML BOTTLE SSP ×3 (09:00→21:00)
[2017-06-28] MEDS: PANTOPRAZOLE 40MG INJ (PROTONIX) (C9113) IV (09:18)
[2017-06-28] MEDS: LACTOBACILLUS ACIDOPHILUS CAP (BACID) PEG ×3 (09:19→21:07)
[2017-06-28] MEDS: AUGMENTIN 500 MG TAB PO ×2 (09:19→21:06)
[2017-06-28] MEDS: METOPROLOL TART 25 MG TABLET PEG ×2 (09:19→21:07)
[2017-06-28] MEDS: SENOKOT S TAB PEG ×2 (09:19→21:06)
[2017-06-28] MEDS: CitaloPRAM (CeleXA) 10 MG TABLET PEG (09:21)
[2017-06-28 10:15] LABS: HEPATITIS B SURFACE ANTIBODY NEGATIVE (POSITIVE)
[2017-06-28 10:22] LABS: HEPATITIS B SURFACE ANTIGEN NEGATIVE (NEGATIVE)
[2017-06-28] MEDS: DOXYCYCLINE HYCLATE 100 MG in D5W MINI-BAG PLUS 100 ML IV (14:01)
[2017-06-28] MEDS: SIMVASTATIN 10 MG TAB PEG (21:06)
[2017-06-28] MEDS: FERROUS SULFATE 300MG/5ML UDC LIQUID PEG (21:07)
[2017-06-29] MEDS: DOXYCYCLINE HYCLATE 100 MG in D5W MINI-BAG PLUS 100 ML IV ×3 (00:57→23:09)
[2017-06-29] MEDS: IPRATROPIUM 0.5MG/ALBUTEROL 2.5MG INH SOL UD 3ML (DUONEB)(J7620) NEB ×4 (01:49→21:44)
[2017-06-29] MEDS: LEVOTHYROXINE 25MCG TABLET (0.025MG) PEG (05:26)
[2017-06-29] MEDS: HEPARIN SOD (PORCINE) 5000 UNITS/ML VIAL SC ×3 (05:27→21:51)
[2017-06-29 05:32] LABS: HEMATOCRIT 28.9 % (36.0-47.0); HEMOGLOBIN 9.2 g/dl (12.0-16.0); MEAN CORPUSCULAR HEMOGLOBIN 30.5 pg (27.0-33.0); MEAN CORPUSCULAR HGB CONC 31.8 g/dl (32.0-36.5); MEAN CORPUSCULAR VOLUME 95.7 fl (80.0-96.0); PLATELET COUNT, AUTOMATED 192 10^3/uL (150-450); RED BLOOD COUNT 3.02 10^6/uL (4.00-5.40); RED CELL DISTRIBUTION WIDTH 17.4 % (11.5-14.5); WHITE BLOOD COUNT 15.3 10^3/uL (4.0-10.0)
[2017-06-29 06:04] LABS: ALBUMIN 2.2 GM/DL (3.2-5.2); ALBUMIN/GLOBULIN RATIO 0.47 (1.00-1.93); ALKALINE PHOSPHATASE 89 U/L (45-117); ALT/SGPT 33 U/L (12-78); ANION GAP 10 MEQ/L (8-16); AST/SGOT 13 U/L (7-37); BILIRUBIN,TOTAL 0.5 MG/DL (0.2-1.0); BLOOD UREA NITROGEN 103 MG/DL (7-18); C REACTIVE PROTEIN QUANTITATIV 3.02 MG/DL (0.00-0.30); CALCIUM LEVEL 8.3 MG/DL (8.8-10.2); CARBON DIOXIDE LEVEL 28 MEQ/L (21-32); CHLORIDE LEVEL 100 MEQ/L (98-107); CREATININE FOR GFR 2.26 MG/DL (0.55-1.30); GLOMERULAR FILTRATION RATE 22.1 (>32); GLUCOSE, FASTING 205 MG/DL (70-100); MAGNESIUM LEVEL 2.3 MG/DL (1.8-2.4); POTASSIUM SERUM 4.1 MEQ/L (3.5-5.1); SODIUM LEVEL 138 MEQ/L (136-145); TOTAL PROTEIN 6.9 GM/DL (6.4-8.2)
[2017-06-29] MEDS: SENOKOT S TAB PEG ×2 (09:18→21:50)
[2017-06-29] MEDS: AUGMENTIN 500 MG TAB PO ×2 (09:19→21:50)
[2017-06-29] MEDS: CHLORHEXIDINE ORAL RINSE 0.12%/15ML 120ML BOTTLE SSP ×3 (09:19→21:51)
[2017-06-29] MEDS: METOPROLOL TART 25 MG TABLET PEG ×2 (09:19→21:52)
[2017-06-29] MEDS: CitaloPRAM (CeleXA) 10 MG TABLET PEG (09:19)
[2017-06-29] MEDS: PANTOPRAZOLE 40MG INJ (PROTONIX) (C9113) IV (09:19)
[2017-06-29] MEDS: LACTOBACILLUS ACIDOPHILUS CAP (BACID) PEG ×3 (09:19→21:50)
[2017-06-29] MEDS: SIMVASTATIN 10 MG TAB PEG (21:50)
[2017-06-29] MEDS: FERROUS SULFATE 300MG/5ML UDC LIQUID PEG (21:50)
[2017-06-30] MEDS: IPRATROPIUM 0.5MG/ALBUTEROL 2.5MG INH SOL UD 3ML (DUONEB)(J7620) NEB ×4 (02:00→20:15)
[2017-06-30 05:37] LABS: HEMATOCRIT 29.6 % (36.0-47.0); HEMOGLOBIN 9.3 g/dl (12.0-16.0); MEAN CORPUSCULAR HEMOGLOBIN 30.3 pg (27.0-33.0); MEAN CORPUSCULAR HGB CONC 31.4 g/dl (32.0-36.5); MEAN CORPUSCULAR VOLUME 96.4 fl (80.0-96.0); PLATELET COUNT, AUTOMATED 207 10^3/uL (150-450); RED BLOOD COUNT 3.07 10^6/uL (4.00-5.40); RED CELL DISTRIBUTION WIDTH 17.6 % (11.5-14.5); WHITE BLOOD COUNT 15.9 10^3/uL (4.0-10.0)
[2017-06-30] MEDS: LEVOTHYROXINE 25MCG TABLET (0.025MG) PEG (06:04)
[2017-06-30] MEDS: HEPARIN SOD (PORCINE) 5000 UNITS/ML VIAL SC ×3 (06:08→21:58)
[2017-06-30 06:12] LABS: ALBUMIN 2.2 GM/DL (3.2-5.2); ALBUMIN/GLOBULIN RATIO 0.51 (1.00-1.93); ALKALINE PHOSPHATASE 86 U/L (45-117); ALT/SGPT 30 U/L (12-78); ANION GAP 10 MEQ/L (8-16); AST/SGOT 14 U/L (7-37); BILIRUBIN,TOTAL 0.6 MG/DL (0.2-1.0); BLOOD UREA NITROGEN 99 MG/DL (7-18); CALCIUM LEVEL 8.4 MG/DL (8.8-10.2); CARBON DIOXIDE LEVEL 26 MEQ/L (21-32); CHLORIDE LEVEL 103 MEQ/L (98-107); GLOMERULAR FILTRATION RATE 26.9 (>32); GLUCOSE, FASTING 172 MG/DL (70-100); MAGNESIUM LEVEL 2.3 MG/DL (1.8-2.4); POTASSIUM SERUM 4.1 MEQ/L (3.5-5.1); SODIUM LEVEL 139 MEQ/L (136-145); TOTAL PROTEIN 6.5 GM/DL (6.4-8.2)
[2017-06-30] MEDS: SENOKOT S TAB PEG ×2 (09:00→21:57)
[2017-06-30] MEDS: PANTOPRAZOLE 40MG INJ (PROTONIX) (C9113) IV (10:05)
[2017-06-30] MEDS: LACTOBACILLUS ACIDOPHILUS CAP (BACID) PEG ×3 (10:05→21:57)
[2017-06-30] MEDS: CitaloPRAM (CeleXA) 10 MG TABLET PEG (10:05)
[2017-06-30] MEDS: METOPROLOL TART 25 MG TABLET PEG ×2 (10:06→21:58)
[2017-06-30] MEDS: CHLORHEXIDINE ORAL RINSE 0.12%/15ML 120ML BOTTLE SSP ×3 (10:06→21:57)
[2017-06-30] MEDS: NAFCILLIN SOD 1 GM in D5W MINI-BAG PLUS 50 ML IV ×3 (10:07→21:58)
[2017-06-30] MEDS: FERROUS SULFATE 300MG/5ML UDC LIQUID PEG (21:57)
[2017-06-30] MEDS: SIMVASTATIN 10 MG TAB PEG (21:57)
[2017-06-30 22:50] LABS: APPEARANCE, URINE CLEAR (CLEAR); BACTERIA, URINE AUTO NEGATIVE (NEGATIVE); BILIRUBIN, URINE AUTO NEGATIVE (NEGATIVE); BLOOD, URINE BLOOD NEGATIVE (NEGATIVE); COLOR, URINE YELLOW (YELLOW); GLUCOSE, URINE (UA) AUTO 1+ mg/dL (NEGATIVE); KETONE, URINE AUTO NEGATIVE (NEGATIVE); LEUKOCYTE ESTERASE, URINE AUTO NEGATIVE (NEGATIVE); NITRITE, URINE AUTO NEGATIVE (NEGATIVE); PROTEIN, URINE AUTO NEGATIVE (NEGATIVE); RBC, URINE AUTO 1 /HPF (0-3); SPECIFIC GRAVITY URINE AUTO 1.013 (1.002-1.035); SQUAMOUS EPITHELIAL CELL UR AU 0 /HPF (0-6); UROBILINOGEN, URINE AUTO 0.2 mg/dL (0.0-2.0); WBC, URINE AUTO 0 /HPF (0-3)
[2017-07-01] MEDS: IPRATROPIUM 0.5MG/ALBUTEROL 2.5MG INH SOL UD 3ML (DUONEB)(J7620) NEB ×4 (02:00→21:17)
[2017-07-01] MEDS: NAFCILLIN SOD 1 GM in D5W MINI-BAG PLUS 50 ML IV ×5 (03:55→21:00)
[2017-07-01] MEDS: LEVOTHYROXINE 25MCG TABLET (0.025MG) PEG (05:38)
[2017-07-01] MEDS: HEPARIN SOD (PORCINE) 5000 UNITS/ML VIAL SC ×3 (05:39→22:38)
[2017-07-01 08:38] LABS: HEMATOCRIT 31.2 % (36.0-47.0); HEMOGLOBIN 9.8 g/dl (12.0-16.0); MEAN CORPUSCULAR HEMOGLOBIN 30.1 pg (27.0-33.0); MEAN CORPUSCULAR HGB CONC 31.4 g/dl (32.0-36.5); MEAN CORPUSCULAR VOLUME 95.7 fl (80.0-96.0); PLATELET COUNT, AUTOMATED 232 10^3/uL (150-450); RED BLOOD COUNT 3.26 10^6/uL (4.00-5.40); RED CELL DISTRIBUTION WIDTH 18.3 % (11.5-14.5); WHITE BLOOD COUNT 15.2 10^3/uL (4.0-10.0)
[2017-07-01 08:42] LABS: ADD MANUAL DIFFER YES; DIFF SLIDE NUMBER 113; POS COUNT POS FLAG; POSITIVE MORPH POS FLAG
[2017-07-01 08:58] LABS: ANION GAP 7 MEQ/L (8-16); BLOOD UREA NITROGEN 99 MG/DL (7-18); C REACTIVE PROTEIN QUANTITATIV 1.83 MG/DL (0.00-0.30); CALCIUM LEVEL 8.6 MG/DL (8.8-10.2); CARBON DIOXIDE LEVEL 29 MEQ/L (21-32); CHLORIDE LEVEL 104 MEQ/L (98-107); CREATININE FOR GFR 1.57 MG/DL (0.55-1.30); GLOMERULAR FILTRATION RATE 33.6 (>32); GLUCOSE, FASTING 129 MG/DL (70-100); POTASSIUM SERUM 4.1 MEQ/L (3.5-5.1); SODIUM LEVEL 140 MEQ/L (136-145)
[2017-07-01 09:03] LABS: ATYPICAL LYMPH 1 % (0-5); EOSINOPHILS 4 % (0-5); LYMPHOCYTES 9 % (16-52); METAMYELOCYTES 3 % (0-0); MONOCYTES 6 % (0-8); MYELOCYTES 4 % (0-0); NEUTROPHILS 73 % (35-75)
[2017-07-01 09:04] LABS: ANISOCYTOSIS 1+; HYPOCHROMASIA 1+; PLATELET ESTIMATE NORMAL (NORMAL); POLYCHROMASIA 1+
[2017-07-01 09:36] LABS: ERYTHROCYTE SEDIMENTATION RATE 65 mm/hr (0-30)
[2017-07-01] MEDS: SENOKOT S TAB PEG ×2 (11:27→22:38)
[2017-07-01] MEDS: CitaloPRAM (CeleXA) 10 MG TABLET PEG (11:27)
[2017-07-01] MEDS: PANTOPRAZOLE 40MG INJ (PROTONIX) (C9113) IV (11:27)
[2017-07-01] MEDS: LACTOBACILLUS ACIDOPHILUS CAP (BACID) PEG ×3 (11:27→22:38)
[2017-07-01] MEDS: METOPROLOL TART 25 MG TABLET PEG ×2 (11:28→22:38)
[2017-07-01] MEDS: CHLORHEXIDINE ORAL RINSE 0.12%/15ML 120ML BOTTLE SSP ×3 (11:28→22:37)
[2017-07-01] MEDS: FUROSEMIDE 40 MG/4 ML VIAL (J1940) IV (12:11)
[2017-07-01] MEDS: FERROUS SULFATE 300MG/5ML UDC LIQUID PEG (22:37)
[2017-07-01] MEDS: SIMVASTATIN 10 MG TAB PEG (22:38)
[2017-07-02] MEDS: IPRATROPIUM 0.5MG/ALBUTEROL 2.5MG INH SOL UD 3ML (DUONEB)(J7620) NEB ×4 (02:00→20:56)
[2017-07-02] MEDS: NAFCILLIN SOD 1 GM in D5W MINI-BAG PLUS 50 ML IV ×4 (03:03→20:42)
[2017-07-02] MEDS: LEVOTHYROXINE 25MCG TABLET (0.025MG) PEG (05:56)
[2017-07-02] MEDS: HEPARIN SOD (PORCINE) 5000 UNITS/ML VIAL SC ×3 (05:57→20:43)
[2017-07-02 09:07] LABS: HEMATOCRIT 30.9 % (36.0-47.0); HEMOGLOBIN 9.9 g/dl (12.0-16.0); MEAN CORPUSCULAR HEMOGLOBIN 30.9 pg (27.0-33.0); MEAN CORPUSCULAR VOLUME 96.6 fl (80.0-96.0); PLATELET COUNT, AUTOMATED 238 10^3/uL (150-450); RED CELL DISTRIBUTION WIDTH 18.7 % (11.5-14.5); WHITE BLOOD COUNT 17.4 10^3/uL (4.0-10.0)
[2017-07-02 09:26] LABS: ANION GAP 11 MEQ/L (8-16); BLOOD UREA NITROGEN 89 MG/DL (7-18); CALCIUM LEVEL 8.2 MG/DL (8.8-10.2); CARBON DIOXIDE LEVEL 30 MEQ/L (21-32); CHLORIDE LEVEL 100 MEQ/L (98-107); CREATININE FOR GFR 1.47 MG/DL (0.55-1.30); GLOMERULAR FILTRATION RATE 36.2 (>32); GLUCOSE, FASTING 160 MG/DL (70-100); POTASSIUM SERUM 4.1 MEQ/L (3.5-5.1); SODIUM LEVEL 141 MEQ/L (136-145)
[2017-07-02 09:32] LABS: POS COUNT POS FLAG; POSITIVE MORPH POS FLAG
[2017-07-02 09:33] LABS: ADD MANUAL DIFFER YES; DIFF SLIDE NUMBER 144
[2017-07-02 09:55] LABS: EOSINOPHILS 4 % (0-5); LYMPHOCYTES 8 % (16-52); MONOCYTES 11 % (0-8); NEUTROPHILS 77 % (35-75)
[2017-07-02 09:56] LABS: GIANT PLATELETS 1+; PLATELET CLUMPS SMALL AMT
[2017-07-02 09:57] LABS: PLATELET ESTIMATE NORMAL (NORMAL)
[2017-07-02] MEDS: CHLORHEXIDINE ORAL RINSE 0.12%/15ML 120ML BOTTLE SSP ×3 (09:57→20:43)
[2017-07-02] MEDS: LACTOBACILLUS ACIDOPHILUS CAP (BACID) PEG ×3 (09:58→20:42)
[2017-07-02] MEDS: PANTOPRAZOLE 40MG INJ (PROTONIX) (C9113) IV (09:58)
[2017-07-02] MEDS: CitaloPRAM (CeleXA) 10 MG TABLET PEG (09:58)
[2017-07-02] MEDS: METOPROLOL TART 25 MG TABLET PEG ×2 (09:58→20:43)
[2017-07-02] MEDS: SENOKOT S TAB PEG ×2 (09:58→20:42)
[2017-07-02] MEDS: FUROSEMIDE 40 MG/4 ML VIAL (J1940) IV (14:00)
[2017-07-02] MEDS: FERROUS SULFATE 300MG/5ML UDC LIQUID PEG (20:42)
[2017-07-02] MEDS: SIMVASTATIN 10 MG TAB PEG (20:42)
[2017-07-03] MEDS: IPRATROPIUM 0.5MG/ALBUTEROL 2.5MG INH SOL UD 3ML (DUONEB)(J7620) NEB ×4 (01:01→19:43)
[2017-07-03] MEDS: NAFCILLIN SOD 1 GM in D5W MINI-BAG PLUS 50 ML IV ×4 (02:56→22:00)
[2017-07-03] MEDS: LEVOTHYROXINE 25MCG TABLET (0.025MG) PEG (05:51)
[2017-07-03] MEDS: HEPARIN SOD (PORCINE) 5000 UNITS/ML VIAL SC ×3 (05:51→22:00)
[2017-07-03 07:10] LABS: HEMATOCRIT 29.8 % (36.0-47.0); HEMOGLOBIN 9.5 g/dl (12.0-16.0); MEAN CORPUSCULAR HEMOGLOBIN 30.3 pg (27.0-33.0); MEAN CORPUSCULAR HGB CONC 31.9 g/dl (32.0-36.5); MEAN CORPUSCULAR VOLUME 94.9 fl (80.0-96.0); PLATELET COUNT, AUTOMATED 238 10^3/uL (150-450); RED BLOOD COUNT 3.14 10^6/uL (4.00-5.40); RED CELL DISTRIBUTION WIDTH 18.8 % (11.5-14.5); WHITE BLOOD COUNT 16.2 10^3/uL (4.0-10.0)
[2017-07-03 07:14] LABS: ADD MANUAL DIFFER YES; DIFF SLIDE NUMBER 92; POS COUNT POS FLAG; POSITIVE MORPH POS FLAG
[2017-07-03 07:35] LABS: ANION GAP 7 MEQ/L (8-16); BLOOD UREA NITROGEN 86 MG/DL (7-18); CALCIUM LEVEL 8.4 MG/DL (8.8-10.2); CARBON DIOXIDE LEVEL 31 MEQ/L (21-32); CHLORIDE LEVEL 101 MEQ/L (98-107); CREATININE FOR GFR 1.38 MG/DL (0.55-1.30); GLUCOSE, FASTING 120 MG/DL (70-100); POTASSIUM SERUM 3.8 MEQ/L (3.5-5.1); SODIUM LEVEL 139 MEQ/L (136-145)
[2017-07-03 07:41] LABS: ANISOCYTOSIS 1+; EOSINOPHILS 2 % (0-5); LYMPHOCYTES 13 % (16-52); MONOCYTES 1 % (0-8); NEUTROPHILS 84 % (35-75)
[2017-07-03 07:42] LABS: PLATELET ESTIMATE NORMAL (NORMAL)
[2017-07-03] MEDS ORDERED: POTASSIUM CHLORIDE 10 MEQ SR TABLET PO (09:15)
[2017-07-03] MEDS: PANTOPRAZOLE 40MG INJ (PROTONIX) (C9113) IV (09:26)
[2017-07-03] MEDS: METOPROLOL TART 25 MG TABLET PEG ×2 (09:27→21:59)
[2017-07-03] MEDS: SENOKOT S TAB PEG ×2 (09:27→21:59)
[2017-07-03] MEDS: CitaloPRAM (CeleXA) 10 MG TABLET PEG (09:27)
[2017-07-03] MEDS: LACTOBACILLUS ACIDOPHILUS CAP (BACID) PEG ×3 (09:27→21:59)
[2017-07-03] MEDS: CHLORHEXIDINE ORAL RINSE 0.12%/15ML 120ML BOTTLE SSP ×3 (09:44→22:00)
[2017-07-03] MEDS: TORSEMIDE 20 MG TAB PO (09:53)
[2017-07-03] MEDS: POTASSIUM CHLORIDE 10% LIQ 20 MEQ/15 ML UDC PO (09:53)
[2017-07-03] MEDS: FERROUS SULFATE 300MG/5ML UDC LIQUID PEG (21:59)
[2017-07-03] MEDS: SIMVASTATIN 10 MG TAB PEG (21:59)
[2017-07-04] MEDS: IPRATROPIUM 0.5MG/ALBUTEROL 2.5MG INH SOL UD 3ML (DUONEB)(J7620) NEB ×2 (01:40→07:11)
[2017-07-04] MEDS: NAFCILLIN SOD 1 GM in D5W MINI-BAG PLUS 50 ML IV ×2 (02:32→09:51)
[2017-07-04 06:03] LABS: BASO # 0.1 10^3/uL (0.0-0.2); BASO % 0.3 % (0.0-1.0); EOS # 0.4 10^3/uL (0.0-0.50); EOS % 2.8 % (0.0-3.0); HEMATOCRIT 29.2 % (36.0-47.0); HEMOGLOBIN 9.3 g/dl (12.0-16.0); IMMATURE GRANULOCYTE % 4.1 % (0-3.0); LYMPH # 1.1 10^3/uL (1.5-4.5); LYMPH % 7.6 % (24.0-44.0); MEAN CORPUSCULAR HEMOGLOBIN 30.7 pg (27.0-33.0); MEAN CORPUSCULAR HGB CONC 31.8 g/dl (32.0-36.5); MEAN CORPUSCULAR VOLUME 96.4 fl (80.0-96.0); NEUTROPHILS # 11.4 10^3/uL (1.8-7.7); NEUTROPHILS % 78.2 % (36.0-66.0); PLATELET COUNT, AUTOMATED 227 10^3/uL (150-450); RED BLOOD COUNT 3.03 10^6/uL (4.00-5.40); WHITE BLOOD COUNT 14.5 10^3/uL (4.0-10.0)
[2017-07-04 06:18] LABS: ANION GAP 5 MEQ/L (8-16); BLOOD UREA NITROGEN 75 MG/DL (7-18); CALCIUM LEVEL 8.5 MG/DL (8.8-10.2); CARBON DIOXIDE LEVEL 31 MEQ/L (21-32); CHLORIDE LEVEL 102 MEQ/L (98-107); CREATININE FOR GFR 1.38 MG/DL (0.55-1.30); GLUCOSE, FASTING 135 MG/DL (70-100); POTASSIUM SERUM 4.1 MEQ/L (3.5-5.1); SODIUM LEVEL 138 MEQ/L (136-145)
[2017-07-04] MEDS: HEPARIN SOD (PORCINE) 5000 UNITS/ML VIAL SC (06:32)
[2017-07-04] MEDS: LEVOTHYROXINE 25MCG TABLET (0.025MG) PEG (06:33)
[2017-07-04] MEDS: LACTOBACILLUS ACIDOPHILUS CAP (BACID) PEG (09:51)
[2017-07-04] MEDS: TORSEMIDE 20 MG TAB PO (09:52)
[2017-07-04] MEDS: SENOKOT S TAB PEG (09:53)
[2017-07-04] MEDS: CitaloPRAM (CeleXA) 10 MG TABLET PEG (09:54)
[2017-07-04] MEDS: PANTOPRAZOLE 40MG INJ (PROTONIX) (C9113) IV (09:54)
[2017-07-04] MEDS: METOPROLOL TART 25 MG TABLET PEG (09:54)
[2017-07-04] MEDS: CHLORHEXIDINE ORAL RINSE 0.12%/15ML 120ML BOTTLE SSP (09:55)
== END 2017-07-04 12:58 | DRG 871 ==
LOC: M MS4PR 06-25 10:27 → M MSPAV 06-26 18:50 → M ED 23:59 → M ED INP 06-23 08:49 → M ICU 06-23 10:12
PROC: 02HV33Z Insertion of Infusion Device into Superior Vena Cava, Percutaneous Approach (ICD-10-PCS; principal; 2017-06-26)
PROC: 5A1D70Z Performance of Urinary Filtration, Intermittent, Less than 6 Hours Per Day (ICD-10-PCS; 2017-06-27)
PROC: 05PY33Z Removal of Infusion Device from Upper Vein, Percutaneous Approach (ICD-10-PCS; 2017-07-04)
DX: A41.9 Sepsis, unspecified organism (principal); I50.23 Acute on chronic systolic (congestive) heart failure; J15.211 Pneumonia due to Methicillin susceptible Staphylococcus aureus; I13.0 Hypertensive heart and chronic kidney disease with heart failure and stage 1 through stage 4 chronic kidney disease, or unspecified chronic kidney disease; N17.9 Acute kidney failure, unspecified; N39.0 Urinary tract infection, site not specified; E87.1 Hypo-osmolality and hyponatremia; L03.211 Cellulitis of face; I48.0 Paroxysmal atrial fibrillation; Z66 Do not resuscitate; J45.909 Unspecified asthma, uncomplicated; E89.0 Postprocedural hypothyroidism; M10.9 Gout, unspecified; N18.3 Chronic kidney disease, stage 3 (moderate); K11.21 Acute sialoadenitis; R65.20 Severe sepsis without septic shock; D50.9 Iron deficiency anemia, unspecified; E55.9 Vitamin D deficiency, unspecified; Z93.1 Gastrostomy status; D63.8 Anemia in other chronic diseases classified elsewhere; J20.5 Acute bronchitis due to respiratory syncytial virus; B96.20 Unspecified Escherichia coli [E. coli] as the cause of diseases classified elsewhere; E87.5 Hyperkalemia; I27.20 Pulmonary hypertension, unspecified; R32 Unspecified urinary incontinence; Z96.653 Presence of artificial knee joint, bilateral; Z79.899 Other long term (current) drug therapy

== ENCOUNTER → 2017-06-25 | Outpatient (REF) | payer MEDICARE, OTHER | DX: D64.9 Anemia, unspecified (principal); Z53.9 Procedure and treatment not carried out, unspecified reason ==

== ENCOUNTER 2017-07-08 14:58 | Inpatient (IN) | payer MEDICARE, OTHER ==
[2017-07-08] MEDS: VANCOMYCIN HCL 750 MG, VIAL MATE ADAPTER 1 EACH in D5W 250 ML IV (01:30)
[2017-07-08] MEDS: VANCOMYCIN HCL 1,000 MG in IV FLUID PLACE HOLDER 1 EA IV (01:30)
[2017-07-08] MEDS: VANCOMYCIN HCL 1,000 MG, VIAL MATE ADAPTER 1 EACH in D5W 250 ML IV ×2 (09:00→21:00)
[2017-07-08 15:52] LABS: BASO % 0.1 % (0.0-1.0); EOS # 0.2 10^3/uL (0.0-0.50); EOS % 1.3 % (0.0-3.0); HEMATOCRIT 27.1 % (36.0-47.0); HEMOGLOBIN 8.5 g/dl (12.0-15.5); IMMATURE GRANULOCYTE % 0.6 % (0-3.0); LYMPH # 0.7 10^3/uL (1.5-4.5); LYMPH % 4.6 % (24.0-44.0); MEAN CORPUSCULAR HEMOGLOBIN 30.6 pg (27.0-33.0); MEAN CORPUSCULAR HGB CONC 31.4 g/dl (32.0-36.5); MEAN CORPUSCULAR VOLUME 97.5 fl (80.0-96.0); MONO # 0.9 10^3/uL (0.0-0.8); MONO % 6.6 % (0.0-5.0); NEUTROPHILS # 12.2 10^3/uL (1.8-7.7); NEUTROPHILS % 86.8 % (36.0-66.0); PLATELET COUNT, AUTOMATED 265 10^3/uL (150-450); RED BLOOD COUNT 2.78 10^6/uL (4.00-5.40); RED CELL DISTRIBUTION WIDTH 18.2 % (11.5-14.5); WHITE BLOOD COUNT 14.1 10^3/uL (4.0-10.0)
[2017-07-08 16:01] LABS: INR 1.15; PROTHROMBIN TIME 14.9 SECONDS (12.4-14.5)
[2017-07-08 16:02] LABS: PARTIAL THROMBOPLASTIN TIME 35.8 SECONDS (26.8-37.9)
[2017-07-08 16:24] LABS: ALBUMIN/GLOBULIN RATIO 0.35 (1.00-1.93); ALKALINE PHOSPHATASE 83 U/L (45-117); ALT/SGPT 21 U/L (12-78); ANION GAP 6 MEQ/L (8-16); AST/SGOT 12 U/L (7-37); BILIRUBIN,DIRECT 0.2 MG/DL (0.0-0.2); BILIRUBIN,TOTAL 0.6 MG/DL (0.2-1.0); BLOOD UREA NITROGEN 56 MG/DL (7-18); CALCIUM LEVEL 8.8 MG/DL (8.8-10.2); CARBON DIOXIDE LEVEL 31 MEQ/L (21-32); CHLORIDE LEVEL 100 MEQ/L (98-107); CPK CREATINE PHOSPHOKINASE 22 U/L (26-192); CREATININE FOR GFR 1.59 MG/DL (0.55-1.30); GLOMERULAR FILTRATION RATE 33.1 (>32); GLUCOSE, FASTING 144 MG/DL (70-100); POTASSIUM SERUM 4.9 MEQ/L (3.5-5.1); SODIUM LEVEL 137 MEQ/L (136-145); TOTAL PROTEIN 7.7 GM/DL (6.4-8.2); TROPONIN I 0.03 NG/ML (< 0.10)
[2017-07-08 16:30] LABS: CK-MB VALUE MASS < 1.0 NG/ML (<3.6); MB/CK RELATIVE INDEX 4.54 (< OR =4); NT-PRO BNP 21728 PG/ML (<450); THYROID STIMULATING HORMONE 0.991 uIU/ML (0.358-3.740)
[2017-07-08] MEDS: IPRATROPIUM 0.5MG/ALBUTEROL 2.5MG INH SOL UD 3ML (DUONEB)(J7620) NEB (16:37)
[2017-07-08 16:44] LABS: ABG BASE EXCESS 5.2 (-2.0-2.0); ABG HCO3 29.5 MEQ/L (22.0-26.0); ABG O2 SATURATION 90.7 % (95.0-99.0); ABG PARTIAL PRESSURE CO2 42.5 mmHg (35.0-45.0); ABG PARTIAL PRESSURE O2 57.5 mmHg (75.0-100.0); ABG STANDARD HCO3 29.1 MEQ/L (22.0-26.0); ABG TOTAL CO2 30.9 MEQ/L (23.0-31.0)
[2017-07-08 17:07] LABS: LACTIC ACID SEPSIS PROTOCOL 1.3 MMOL/L (0.4-2.0)
[2017-07-08] MEDS: CEFTRIAXONE SOD 1 GM in APPROPRIATE DILUENT 1 EA IV (17:12)
[2017-07-08] MEDS: NS 1,000 ML IV (18:55)
[2017-07-08] MEDS ORDERED: BISACODYL 10 MG SUPP PR (19:00)
[2017-07-08] MEDS ORDERED: ACETAMINOPHEN 650 MG SUPP As Ordered (19:08)
[2017-07-08] MEDS: ACETAMINOPHEN 650 MG SUPP PR ×2 (19:22→19:50)
[2017-07-08] MEDS: PIPERACILLIN/TAZOBACTAM SOD 3.375 GM in APPROPRIATE DILUENT 1 EA IV (20:00)
[2017-07-08] MEDS: IPRATROPIUM 0.5MG/ALBUTEROL 2.5MG INH SOL UD 3ML (DUONEB)(J7620) INH (20:35)
[2017-07-08] MEDS: METOPROLOL TART 25 MG TABLET PEG (21:00)
[2017-07-08] MEDS ORDERED: FUROSEMIDE 40 MG/4 ML VIAL (J1940) As Ordered (21:19)
[2017-07-08] MEDS: FUROSEMIDE 40 MG/4 ML VIAL (J1940) IV (21:43)
[2017-07-08] MEDS: VANCOMYCIN HCL 500 MG in D5W MINI-BAG PLUS 100 ML IV (22:00)
[2017-07-09] MEDS: SIMVASTATIN 10 MG TAB PEG ×2 (00:55→20:42)
[2017-07-09] MEDS: SENNA 8.6 MG TAB (SENOKOT) PEG ×3 (00:55→20:45)
[2017-07-09] MEDS: ACETAMINOPHEN 325 MG TAB PEG (00:56)
[2017-07-09] MEDS: DIGOXIN INJ 0.5 MG/2 ML AMP (J1160) IV ×2 (00:57→07:56)
[2017-07-09] MEDS: HEPARIN SOD (PORCINE) 5000 UNITS/ML VIAL SC ×3 (01:00→20:43)
[2017-07-09 01:53] LABS: ANION GAP 6 MEQ/L (8-16); BLOOD UREA NITROGEN 65 MG/DL (7-18); CALCIUM LEVEL 8.8 MG/DL (8.8-10.2); CARBON DIOXIDE LEVEL 30 MEQ/L (21-32); CHLORIDE LEVEL 102 MEQ/L (98-107); GLOMERULAR FILTRATION RATE 26.9 (>32); GLUCOSE, FASTING 131 MG/DL (70-100); SODIUM LEVEL 138 MEQ/L (136-145)
[2017-07-09 01:57] LABS: LACTIC ACID SEPSIS PROTOCOL 1.4 MMOL/L (0.4-2.0)
[2017-07-09 01:58] LABS: POTASSIUM SERUM 5.2 MEQ/L (3.5-5.1)
[2017-07-09] MEDS: PIPERACILLIN/TAZOBACTAM SOD 3.375 GM in APPROPRIATE DILUENT 1 EA IV ×4 (03:00→19:56)
[2017-07-09] MEDS: NS 1,000 ML IV ×2 (04:21→16:11)
[2017-07-09] MEDS: LEVOTHYROXINE 25MCG TABLET (0.025MG) PEG (05:11)
[2017-07-09 07:32] LABS: HEMOGLOBIN 7.2 g/dl (12.0-15.5); MEAN CORPUSCULAR HEMOGLOBIN 30.8 pg (27.0-33.0); MEAN CORPUSCULAR HGB CONC 31.3 g/dl (32.0-36.5); MEAN CORPUSCULAR VOLUME 98.3 fl (80.0-96.0); PLATELET COUNT, AUTOMATED 190 10^3/uL (150-450); RED BLOOD COUNT 2.34 10^6/uL (4.00-5.40); RED CELL DISTRIBUTION WIDTH 18.6 % (11.5-14.5); WHITE BLOOD COUNT 16.2 10^3/uL (4.0-10.0)
[2017-07-09] MEDS: IPRATROPIUM 0.5MG/ALBUTEROL 2.5MG INH SOL UD 3ML (DUONEB)(J7620) INH ×3 (07:43→20:14)
[2017-07-09 07:58] LABS: ANION GAP 7 MEQ/L (8-16); BLOOD UREA NITROGEN 60 MG/DL (7-18); CALCIUM LEVEL 8.1 MG/DL (8.8-10.2); CARBON DIOXIDE LEVEL 29 MEQ/L (21-32); CHLORIDE LEVEL 103 MEQ/L (98-107); CREATININE FOR GFR 1.94 MG/DL (0.55-1.30); GLOMERULAR FILTRATION RATE 26.3 (>32); GLUCOSE, FASTING 111 MG/DL (70-100); POTASSIUM SERUM 4.9 MEQ/L (3.5-5.1); SODIUM LEVEL 139 MEQ/L (136-145)
[2017-07-09] MEDS: METOPROLOL TART 25 MG TABLET PEG ×2 (09:00→20:44)
[2017-07-09] MEDS: ISOSORBIDE MON. (ISMO,MONOKET) 20 MG TAB PEG ×2 (09:00→16:11)
[2017-07-09] MEDS ORDERED: TORSEMIDE 20 MG TAB PEG (09:00)
[2017-07-09] MEDS: VANCOMYCIN HCL 1,000 MG, VIAL MATE ADAPTER 1 EACH in D5W 250 ML IV (09:18)
[2017-07-09] MEDS: FAMOTIDINE 20 MG TAB PEG (09:18)
[2017-07-09] MEDS: ACETAMINOPHEN TAB 650MG DOSE (2X325MG) PEG (20:43)
[2017-07-10] MEDS: IPRATROPIUM 0.5MG/ALBUTEROL 2.5MG INH SOL UD 3ML (DUONEB)(J7620) INH ×4 (01:57→20:06)
[2017-07-10] MEDS: PIPERACILLIN/TAZOBACTAM SOD 3.375 GM in APPROPRIATE DILUENT 1 EA IV ×3 (04:34→20:50)
[2017-07-10] MEDS: NS 1,000 ML IV (04:35)
[2017-07-10 05:10] LABS: HEMATOCRIT 21.9 % (36.0-47.0); MEAN CORPUSCULAR HEMOGLOBIN 29.9 pg (27.0-33.0); MEAN CORPUSCULAR HGB CONC 30.6 g/dl (32.0-36.5); MEAN CORPUSCULAR VOLUME 97.8 fl (80.0-96.0); PLATELET COUNT, AUTOMATED 176 10^3/uL (150-450); RED BLOOD COUNT 2.24 10^6/uL (4.00-5.40); RED CELL DISTRIBUTION WIDTH 18.2 % (11.5-14.5); WHITE BLOOD COUNT 11.1 10^3/uL (4.0-10.0)
[2017-07-10 05:17] LABS: HEMOGLOBIN 6.7 g/dl (12.0-15.5)
[2017-07-10 05:39] LABS: ANION GAP 8 MEQ/L (8-16); BLOOD UREA NITROGEN 57 MG/DL (7-18); CALCIUM LEVEL 8.4 MG/DL (8.8-10.2); CARBON DIOXIDE LEVEL 27 MEQ/L (21-32); CHLORIDE LEVEL 105 MEQ/L (98-107); CREATININE FOR GFR 1.88 MG/DL (0.55-1.30); DIGOXIN LEVEL 1.9 NG/ML (0.5-2.0); GLOMERULAR FILTRATION RATE 27.3 (>32); GLUCOSE, FASTING 65 MG/DL (70-100); POTASSIUM SERUM 4.3 MEQ/L (3.5-5.1); SODIUM LEVEL 140 MEQ/L (136-145)
[2017-07-10] MEDS: LEVOTHYROXINE 25MCG TABLET (0.025MG) PEG (06:23)
[2017-07-10 08:29] LABS: VANCOMYCIN LEVEL TROUGH 23.5 UG/ML (10.0-20.0)
[2017-07-10] MEDS: HEPARIN SOD (PORCINE) 5000 UNITS/ML VIAL SC ×2 (08:40→20:51)
[2017-07-10] MEDS: ISOSORBIDE MON. (ISMO,MONOKET) 20 MG TAB PEG ×2 (08:40→16:41)
[2017-07-10] MEDS: SENNA 8.6 MG TAB (SENOKOT) PEG ×2 (08:41→20:51)
[2017-07-10] MEDS: FAMOTIDINE 20 MG TAB PEG (08:41)
[2017-07-10] MEDS: METOPROLOL TART 25 MG TABLET PEG ×2 (08:41→20:53)
[2017-07-10 10:49] LABS: IMMEDIATE SPIN CROSSMATCH 1 2
[2017-07-10] MEDS: VANCOMYCIN HCL 1,000 MG, VIAL MATE ADAPTER 1 EACH in D5W 250 ML IV (13:37)
[2017-07-10] MEDS ORDERED: SLF 3 ML SYR IV (14:45)
[2017-07-10 17:42] LABS: HEMATOCRIT 29.9 % (36.0-47.0); HEMOGLOBIN 9.7 g/dl (12.0-15.5)
[2017-07-10] MEDS: SIMVASTATIN 10 MG TAB PEG (20:51)
[2017-07-10] MEDS: SLF 3 ML SYR IV (20:51)
[2017-07-11] MEDS: IPRATROPIUM 0.5MG/ALBUTEROL 2.5MG INH SOL UD 3ML (DUONEB)(J7620) INH ×4 (02:08→19:57)
[2017-07-11] MEDS: PIPERACILLIN/TAZOBACTAM SOD 3.375 GM in APPROPRIATE DILUENT 1 EA IV (04:23)
[2017-07-11 05:07] LABS: HEMATOCRIT 28.4 % (36.0-47.0); HEMOGLOBIN 8.9 g/dl (12.0-15.5); MEAN CORPUSCULAR HEMOGLOBIN 29.5 pg (27.0-33.0); MEAN CORPUSCULAR HGB CONC 31.3 g/dl (32.0-36.5); PLATELET COUNT, AUTOMATED 157 10^3/uL (150-450); RED BLOOD COUNT 3.02 10^6/uL (4.00-5.40); RED CELL DISTRIBUTION WIDTH 19.7 % (11.5-14.5); WHITE BLOOD COUNT 9.3 10^3/uL (4.0-10.0)
[2017-07-11 05:47] LABS: ANION GAP 8 MEQ/L (8-16); BLOOD UREA NITROGEN 54 MG/DL (7-18); CALCIUM LEVEL 8.3 MG/DL (8.8-10.2); CARBON DIOXIDE LEVEL 27 MEQ/L (21-32); CHLORIDE LEVEL 109 MEQ/L (98-107); CREATININE FOR GFR 1.83 MG/DL (0.55-1.30); FERRITIN 2008 NG/ML (8-252); GLOMERULAR FILTRATION RATE 28.1 (>32); GLUCOSE, FASTING 114 MG/DL (70-100); IRON (FE) 34 UG/DL (50-170); PERCENT SATURATION 23.6 % (13.2-45.0); POTASSIUM SERUM 4.1 MEQ/L (3.5-5.1); SODIUM LEVEL 144 MEQ/L (136-145); TOTAL IRON BINDING CAPACITY 144 UG/DL (250-450)
[2017-07-11] MEDS: LEVOTHYROXINE 25MCG TABLET (0.025MG) PEG (06:18)
[2017-07-11] MEDS: SLF 3 ML SYR IV ×3 (06:18→20:33)
[2017-07-11] MEDS: ISOSORBIDE MON. (ISMO,MONOKET) 20 MG TAB PEG ×2 (08:15→17:13)
[2017-07-11] MEDS: SENNA 8.6 MG TAB (SENOKOT) PEG ×2 (08:15→20:33)
[2017-07-11] MEDS: METOPROLOL TART 25 MG TABLET PEG (08:15)
[2017-07-11] MEDS: FAMOTIDINE 20 MG TAB PEG (08:15)
[2017-07-11] MEDS: HEPARIN SOD (PORCINE) 5000 UNITS/ML VIAL SC ×2 (08:17→20:34)
[2017-07-11] MEDS: TORSEMIDE 20 MG TAB PEG (11:03)
[2017-07-11] MEDS: LINEZOLID 600MG TABLET (ZYVOX) PO ×2 (12:22→20:33)
[2017-07-11] MEDS: MEROPENEM INJ 500 MG in APPROPRIATE DILUENT 1 EA IV ×2 (13:02→20:33)
[2017-07-11] MEDS: SIMVASTATIN 10 MG TAB PEG (20:33)
[2017-07-11] MEDS: METOPROLOL TART 12.5 MG PER 1/2 TAB PEG (20:34)
[2017-07-12] MEDS: IPRATROPIUM 0.5MG/ALBUTEROL 2.5MG INH SOL UD 3ML (DUONEB)(J7620) INH ×4 (02:14→20:31)
[2017-07-12 04:53] LABS: HEMATOCRIT 29.7 % (36.0-47.0); HEMOGLOBIN 9.3 g/dl (12.0-15.5); MEAN CORPUSCULAR HEMOGLOBIN 29.5 pg (27.0-33.0); MEAN CORPUSCULAR HGB CONC 31.3 g/dl (32.0-36.5); MEAN CORPUSCULAR VOLUME 94.3 fl (80.0-96.0); PLATELET COUNT, AUTOMATED 166 10^3/uL (150-450); RED BLOOD COUNT 3.15 10^6/uL (4.00-5.40); WHITE BLOOD COUNT 8.6 10^3/uL (4.0-10.0)
[2017-07-12] MEDS: LEVOTHYROXINE 25MCG TABLET (0.025MG) PEG (05:03)
[2017-07-12] MEDS: MEROPENEM INJ 500 MG in APPROPRIATE DILUENT 1 EA IV ×3 (05:03→21:35)
[2017-07-12] MEDS: SLF 3 ML SYR IV ×3 (05:04→21:36)
[2017-07-12 05:12] LABS: ANION GAP 4 MEQ/L (8-16); BLOOD UREA NITROGEN 54 MG/DL (7-18); CARBON DIOXIDE LEVEL 29 MEQ/L (21-32); CHLORIDE LEVEL 110 MEQ/L (98-107); CREATININE FOR GFR 1.86 MG/DL (0.55-1.30); GLOMERULAR FILTRATION RATE 27.6 (>32); GLUCOSE, FASTING 126 MG/DL (70-100); POTASSIUM SERUM 3.9 MEQ/L (3.5-5.1); SODIUM LEVEL 143 MEQ/L (136-145)
[2017-07-12] MEDS: HEPARIN SOD (PORCINE) 5000 UNITS/ML VIAL SC ×2 (08:50→21:35)
[2017-07-12] MEDS: FAMOTIDINE 20 MG TAB PEG (08:50)
[2017-07-12] MEDS: METOPROLOL TART 12.5 MG PER 1/2 TAB PEG (08:50)
[2017-07-12] MEDS: LINEZOLID 600MG TABLET (ZYVOX) PO ×2 (08:50→21:35)
[2017-07-12] MEDS: TORSEMIDE 20 MG TAB PEG (08:50)
[2017-07-12] MEDS: SENNA 8.6 MG TAB (SENOKOT) PEG ×2 (08:51→21:35)
[2017-07-12] MEDS: ISOSORBIDE MON. (ISMO,MONOKET) 20 MG TAB PEG ×2 (08:51→16:55)
[2017-07-12] MEDS: METOPROLOL TART 50 MG TAB PEG (21:35)
[2017-07-12] MEDS: SIMVASTATIN 10 MG TAB PEG (21:35)
[2017-07-13] MEDS: IPRATROPIUM 0.5MG/ALBUTEROL 2.5MG INH SOL UD 3ML (DUONEB)(J7620) INH ×4 (02:00→20:28)
[2017-07-13] MEDS: MEROPENEM INJ 500 MG in APPROPRIATE DILUENT 1 EA IV ×3 (05:51→20:59)
[2017-07-13] MEDS: SLF 3 ML SYR IV ×3 (05:51→21:02)
[2017-07-13] MEDS: LEVOTHYROXINE 25MCG TABLET (0.025MG) PEG (05:51)
[2017-07-13 07:00] LABS: ANION GAP 8 MEQ/L (8-16); BLOOD UREA NITROGEN 52 MG/DL (7-18); CALCIUM LEVEL 8.9 MG/DL (8.8-10.2); CARBON DIOXIDE LEVEL 29 MEQ/L (21-32); CHLORIDE LEVEL 111 MEQ/L (98-107); CREATININE FOR GFR 1.76 MG/DL (0.55-1.30); GLOMERULAR FILTRATION RATE 29.4 (>32); GLUCOSE, FASTING 103 MG/DL (70-100); SODIUM LEVEL 148 MEQ/L (136-145)
[2017-07-13 07:07] LABS: HEMATOCRIT 29.7 % (36.0-47.0); HEMOGLOBIN 9.2 g/dl (12.0-15.5); MEAN CORPUSCULAR HEMOGLOBIN 29.6 pg (27.0-33.0); MEAN CORPUSCULAR VOLUME 95.5 fl (80.0-96.0); PLATELET COUNT, AUTOMATED 195 10^3/uL (150-450); RED BLOOD COUNT 3.11 10^6/uL (4.00-5.40); RED CELL DISTRIBUTION WIDTH 18.5 % (11.5-14.5)
[2017-07-13] MEDS: TORSEMIDE 20 MG TAB PEG (08:38)
[2017-07-13] MEDS: FAMOTIDINE 20 MG TAB PEG (08:38)
[2017-07-13] MEDS: SENNA 8.6 MG TAB (SENOKOT) PEG ×2 (08:38→21:01)
[2017-07-13] MEDS: ISOSORBIDE MON. (ISMO,MONOKET) 20 MG TAB PEG ×2 (08:38→16:52)
[2017-07-13] MEDS: LINEZOLID 600MG TABLET (ZYVOX) PO ×2 (08:38→21:01)
[2017-07-13] MEDS: METOPROLOL TART 50 MG TAB PEG ×2 (08:38→21:01)
[2017-07-13] MEDS: HEPARIN SOD (PORCINE) 5000 UNITS/ML VIAL SC ×2 (08:39→21:00)
[2017-07-13] MEDS ORDERED: LISINOPRIL 10 MG TAB PO (09:00)
[2017-07-13] MEDS: amLODIPine 5 MG TAB PO (09:57)
[2017-07-13] MEDS: ACETAMINOPHEN TAB 650MG DOSE (2X325MG) PEG (21:00)
[2017-07-13] MEDS: SIMVASTATIN 10 MG TAB PEG (21:01)
[2017-07-14] MEDS: IPRATROPIUM 0.5MG/ALBUTEROL 2.5MG INH SOL UD 3ML (DUONEB)(J7620) INH ×4 (02:00→20:35)
[2017-07-14] MEDS: LEVOTHYROXINE 25MCG TABLET (0.025MG) PEG (05:52)
[2017-07-14] MEDS: MEROPENEM INJ 500 MG in APPROPRIATE DILUENT 1 EA IV ×3 (05:52→21:01)
[2017-07-14] MEDS: SLF 3 ML SYR IV ×3 (05:52→21:03)
[2017-07-14 06:21] LABS: ANION GAP 6 MEQ/L (8-16); BLOOD UREA NITROGEN 56 MG/DL (7-18); CALCIUM LEVEL 8.8 MG/DL (8.8-10.2); CARBON DIOXIDE LEVEL 31 MEQ/L (21-32); CHLORIDE LEVEL 113 MEQ/L (98-107); CREATININE FOR GFR 1.76 MG/DL (0.55-1.30); GLOMERULAR FILTRATION RATE 29.4 (>32); GLUCOSE, FASTING 97 MG/DL (70-100); POTASSIUM SERUM 4.1 MEQ/L (3.5-5.1); SODIUM LEVEL 150 MEQ/L (136-145)
[2017-07-14 06:22] LABS: HEMATOCRIT 30.5 % (36.0-47.0); HEMOGLOBIN 9.2 g/dl (12.0-15.5); MEAN CORPUSCULAR HEMOGLOBIN 29.4 pg (27.0-33.0); MEAN CORPUSCULAR HGB CONC 30.2 g/dl (32.0-36.5); MEAN CORPUSCULAR VOLUME 97.4 fl (80.0-96.0); PLATELET COUNT, AUTOMATED 193 10^3/uL (150-450); RED BLOOD COUNT 3.13 10^6/uL (4.00-5.40); RED CELL DISTRIBUTION WIDTH 18.5 % (11.5-14.5); WHITE BLOOD COUNT 6.1 10^3/uL (4.0-10.0)
[2017-07-14] MEDS: TORSEMIDE 20 MG TAB PEG (08:59)
[2017-07-14] MEDS: ISOSORBIDE MON. (ISMO,MONOKET) 20 MG TAB PEG ×2 (09:00→16:58)
[2017-07-14] MEDS: METOPROLOL TART 50 MG TAB PEG ×2 (09:01→21:02)
[2017-07-14] MEDS: SENNA 8.6 MG TAB (SENOKOT) PEG ×2 (09:01→21:01)
[2017-07-14] MEDS: FAMOTIDINE 20 MG TAB PEG (09:01)
[2017-07-14] MEDS: amLODIPine 5 MG TAB PO (09:02)
[2017-07-14] MEDS: LINEZOLID 600MG TABLET (ZYVOX) PO ×2 (09:02→21:01)
[2017-07-14] MEDS: HEPARIN SOD (PORCINE) 5000 UNITS/ML VIAL SC ×2 (09:03→21:01)
[2017-07-14] MEDS ORDERED: D5W 1000 ML IV (13:30)
[2017-07-14] MEDS: D5W 1,000 ML IV (13:37)
[2017-07-14] MEDS: SIMVASTATIN 10 MG TAB PEG (21:01)
[2017-07-15] MEDS: IPRATROPIUM 0.5MG/ALBUTEROL 2.5MG INH SOL UD 3ML (DUONEB)(J7620) INH ×4 (02:44→20:50)
[2017-07-15] MEDS: MEROPENEM INJ 500 MG in APPROPRIATE DILUENT 1 EA IV ×3 (04:23→20:55)
[2017-07-15 05:57] LABS: HEMATOCRIT 29.2 % (36.0-47.0); HEMOGLOBIN 8.9 g/dl (12.0-15.5); MEAN CORPUSCULAR HEMOGLOBIN 29.8 pg (27.0-33.0); MEAN CORPUSCULAR HGB CONC 30.5 g/dl (32.0-36.5); MEAN CORPUSCULAR VOLUME 97.7 fl (80.0-96.0); PLATELET COUNT, AUTOMATED 190 10^3/uL (150-450); RED BLOOD COUNT 2.99 10^6/uL (4.00-5.40); RED CELL DISTRIBUTION WIDTH 18.3 % (11.5-14.5); WHITE BLOOD COUNT 6.4 10^3/uL (4.0-10.0)
[2017-07-15] MEDS: SLF 3 ML SYR IV ×3 (05:57→20:56)
[2017-07-15] MEDS: LEVOTHYROXINE 25MCG TABLET (0.025MG) PEG (05:57)
[2017-07-15 06:18] LABS: ANION GAP 4 MEQ/L (8-16); BLOOD UREA NITROGEN 59 MG/DL (7-18); CALCIUM LEVEL 8.5 MG/DL (8.8-10.2); CARBON DIOXIDE LEVEL 33 MEQ/L (21-32); CHLORIDE LEVEL 109 MEQ/L (98-107); CREATININE FOR GFR 1.68 MG/DL (0.55-1.30); GLOMERULAR FILTRATION RATE 31.1 (>32); GLUCOSE, FASTING 84 MG/DL (70-100); SODIUM LEVEL 146 MEQ/L (136-145)
[2017-07-15] MEDS: HEPARIN SOD (PORCINE) 5000 UNITS/ML VIAL SC ×2 (09:13→20:54)
[2017-07-15] MEDS: SENNA 8.6 MG TAB (SENOKOT) PEG ×2 (09:13→20:55)
[2017-07-15] MEDS: amLODIPine 5 MG TAB PO (09:13)
[2017-07-15] MEDS: ISOSORBIDE MON. (ISMO,MONOKET) 20 MG TAB PEG ×2 (09:14→16:10)
[2017-07-15] MEDS: FAMOTIDINE 20 MG TAB PEG (09:14)
[2017-07-15] MEDS: TORSEMIDE 20 MG TAB PEG (09:14)
[2017-07-15] MEDS: METOPROLOL TART 50 MG TAB PEG ×2 (09:14→20:55)
[2017-07-15] MEDS: LINEZOLID 600MG TABLET (ZYVOX) PO ×2 (09:14→20:55)
[2017-07-15] MEDS: D5W 1,000 ML IV (09:42)
[2017-07-15] MEDS: SIMVASTATIN 10 MG TAB PEG (20:55)
[2017-07-16] MEDS: IPRATROPIUM 0.5MG/ALBUTEROL 2.5MG INH SOL UD 3ML (DUONEB)(J7620) INH ×4 (02:00→21:21)
[2017-07-16] MEDS: LEVOTHYROXINE 25MCG TABLET (0.025MG) PEG (05:40)
[2017-07-16] MEDS: SLF 3 ML SYR IV ×3 (05:41→22:23)
[2017-07-16] MEDS: D5W 1,000 ML IV ×2 (05:41→22:47)
[2017-07-16] MEDS: MEROPENEM INJ 500 MG in APPROPRIATE DILUENT 1 EA IV (05:41)
[2017-07-16 06:10] LABS: HEMATOCRIT 27.9 % (36.0-47.0); HEMOGLOBIN 8.4 g/dl (12.0-15.5); MEAN CORPUSCULAR HEMOGLOBIN 29.7 pg (27.0-33.0); MEAN CORPUSCULAR HGB CONC 30.1 g/dl (32.0-36.5); MEAN CORPUSCULAR VOLUME 98.6 fl (80.0-96.0); PLATELET COUNT, AUTOMATED 180 10^3/uL (150-450); RED BLOOD COUNT 2.83 10^6/uL (4.00-5.40); RED CELL DISTRIBUTION WIDTH 17.9 % (11.5-14.5); WHITE BLOOD COUNT 5.6 10^3/uL (4.0-10.0)
[2017-07-16 06:27] LABS: ANION GAP 5 MEQ/L (8-16); BLOOD UREA NITROGEN 59 MG/DL (7-18); CALCIUM LEVEL 8.3 MG/DL (8.8-10.2); CARBON DIOXIDE LEVEL 34 MEQ/L (21-32); CHLORIDE LEVEL 106 MEQ/L (98-107); CREATININE FOR GFR 1.57 MG/DL (0.55-1.30); GLOMERULAR FILTRATION RATE 33.6 (>32); GLUCOSE, FASTING 173 MG/DL (70-100); POTASSIUM SERUM 4.1 MEQ/L (3.5-5.1); SODIUM LEVEL 145 MEQ/L (136-145)
[2017-07-16] MEDS: METOPROLOL TART 50 MG TAB PEG ×2 (09:43→22:47)
[2017-07-16] MEDS: TORSEMIDE 20 MG TAB PEG (09:43)
[2017-07-16] MEDS: SENNA 8.6 MG TAB (SENOKOT) PEG ×2 (09:43→22:22)
[2017-07-16] MEDS: LINEZOLID 600MG TABLET (ZYVOX) PO (09:43)
[2017-07-16] MEDS: amLODIPine 5 MG TAB PO (09:44)
[2017-07-16] MEDS: FAMOTIDINE 20 MG TAB PEG (09:44)
[2017-07-16] MEDS: ISOSORBIDE MON. (ISMO,MONOKET) 20 MG TAB PEG ×2 (09:44→16:02)
[2017-07-16] MEDS: HEPARIN SOD (PORCINE) 5000 UNITS/ML VIAL SC ×2 (09:45→22:23)
[2017-07-16] MEDS: SIMVASTATIN 10 MG TAB PEG (22:22)
[2017-07-17] MEDS: D5W 1,000 ML IV (01:30)
[2017-07-17] MEDS: IPRATROPIUM 0.5MG/ALBUTEROL 2.5MG INH SOL UD 3ML (DUONEB)(J7620) INH ×4 (01:56→19:59)
[2017-07-17] MEDS: SLF 3 ML SYR IV ×4 (05:42→20:43)
[2017-07-17] MEDS: LEVOTHYROXINE 25MCG TABLET (0.025MG) PEG (05:52)
[2017-07-17 06:26] LABS: HEMATOCRIT 28.3 % (36.0-47.0); HEMOGLOBIN 8.6 g/dl (12.0-15.5); MEAN CORPUSCULAR HEMOGLOBIN 29.4 pg (27.0-33.0); MEAN CORPUSCULAR HGB CONC 30.4 g/dl (32.0-36.5); MEAN CORPUSCULAR VOLUME 96.6 fl (80.0-96.0); PLATELET COUNT, AUTOMATED 185 10^3/uL (150-450); RED BLOOD COUNT 2.93 10^6/uL (4.00-5.40); RED CELL DISTRIBUTION WIDTH 17.6 % (11.5-14.5); WHITE BLOOD COUNT 5.9 10^3/uL (4.0-10.0)
[2017-07-17 06:44] LABS: ANION GAP 3 MEQ/L (8-16); BLOOD UREA NITROGEN 54 MG/DL (7-18); CALCIUM LEVEL 8.2 MG/DL (8.8-10.2); CARBON DIOXIDE LEVEL 36 MEQ/L (21-32); CHLORIDE LEVEL 103 MEQ/L (98-107); CREATININE FOR GFR 1.51 MG/DL (0.55-1.30); GLOMERULAR FILTRATION RATE 35.1 (>32); GLUCOSE, FASTING 180 MG/DL (70-100); POTASSIUM SERUM 4.1 MEQ/L (3.5-5.1); SODIUM LEVEL 142 MEQ/L (136-145)
[2017-07-17] MEDS: METOPROLOL TART 50 MG TAB PEG ×2 (10:11→20:16)
[2017-07-17] MEDS: FAMOTIDINE 20 MG TAB PEG (10:11)
[2017-07-17] MEDS: amLODIPine 5 MG TAB PO (10:11)
[2017-07-17] MEDS: SENNA 8.6 MG TAB (SENOKOT) PEG ×2 (10:11→20:16)
[2017-07-17] MEDS: TORSEMIDE 20 MG TAB PEG (10:11)
[2017-07-17] MEDS: HEPARIN SOD (PORCINE) 5000 UNITS/ML VIAL SC ×2 (10:12→20:16)
[2017-07-17] MEDS: ISOSORBIDE MON. (ISMO,MONOKET) 20 MG TAB PEG ×2 (10:19→16:00)
[2017-07-17] MEDS: SIMVASTATIN 10 MG TAB PEG (20:16)
[2017-07-18] MEDS: IPRATROPIUM 0.5MG/ALBUTEROL 2.5MG INH SOL UD 3ML (DUONEB)(J7620) INH ×4 (02:00→20:48)
[2017-07-18] MEDS: LEVOTHYROXINE 25MCG TABLET (0.025MG) PEG (05:54)
[2017-07-18] MEDS: SLF 3 ML SYR IV ×3 (05:54→21:23)
[2017-07-18 06:29] LABS: HEMOGLOBIN 8.8 g/dl (12.0-15.5); MEAN CORPUSCULAR HEMOGLOBIN 29.3 pg (27.0-33.0); MEAN CORPUSCULAR HGB CONC 30.3 g/dl (32.0-36.5); MEAN CORPUSCULAR VOLUME 96.7 fl (80.0-96.0); PLATELET COUNT, AUTOMATED 193 10^3/uL (150-450); RED CELL DISTRIBUTION WIDTH 17.4 % (11.5-14.5); WHITE BLOOD COUNT 7.1 10^3/uL (4.0-10.0)
[2017-07-18 06:48] LABS: ANION GAP 5 MEQ/L (8-16); BLOOD UREA NITROGEN 57 MG/DL (7-18); CALCIUM LEVEL 8.5 MG/DL (8.8-10.2); CARBON DIOXIDE LEVEL 36 MEQ/L (21-32); CHLORIDE LEVEL 103 MEQ/L (98-107); CREATININE FOR GFR 1.35 MG/DL (0.55-1.30); GLUCOSE, FASTING 145 MG/DL (70-100); POTASSIUM SERUM 4.6 MEQ/L (3.5-5.1); SODIUM LEVEL 144 MEQ/L (136-145)
[2017-07-18] MEDS: ISOSORBIDE MON. (ISMO,MONOKET) 20 MG TAB PEG ×2 (09:51→16:43)
[2017-07-18] MEDS: FAMOTIDINE 20 MG TAB PEG (09:51)
[2017-07-18] MEDS: TORSEMIDE 20 MG TAB PEG (09:52)
[2017-07-18] MEDS: METOPROLOL TART 50 MG TAB PEG ×2 (09:52→20:22)
[2017-07-18] MEDS: SENNA 8.6 MG TAB (SENOKOT) PEG ×2 (09:52→20:22)
[2017-07-18] MEDS: amLODIPine 5 MG TAB PO (09:52)
[2017-07-18] MEDS: HEPARIN SOD (PORCINE) 5000 UNITS/ML VIAL SC ×2 (09:53→20:23)
[2017-07-18] MEDS: SIMVASTATIN 10 MG TAB PEG (20:22)
[2017-07-19] MEDS: IPRATROPIUM 0.5MG/ALBUTEROL 2.5MG INH SOL UD 3ML (DUONEB)(J7620) INH ×4 (01:58→20:50)
[2017-07-19] MEDS: SLF 3 ML SYR IV (05:47)
[2017-07-19] MEDS: LEVOTHYROXINE 25MCG TABLET (0.025MG) PEG (05:47)
[2017-07-19 07:25] LABS: HEMOGLOBIN 8.8 g/dl (12.0-15.5); MEAN CORPUSCULAR HEMOGLOBIN 30.1 pg (27.0-33.0); MEAN CORPUSCULAR HGB CONC 30.3 g/dl (32.0-36.5); MEAN CORPUSCULAR VOLUME 99.3 fl (80.0-96.0); PLATELET COUNT, AUTOMATED 190 10^3/uL (150-450); RED BLOOD COUNT 2.92 10^6/uL (4.00-5.40); RED CELL DISTRIBUTION WIDTH 17.3 % (11.5-14.5); WHITE BLOOD COUNT 8.7 10^3/uL (4.0-10.0)
[2017-07-19 07:53] LABS: ANION GAP 1 MEQ/L (8-16); BLOOD UREA NITROGEN 51 MG/DL (7-18); CALCIUM LEVEL 8.8 MG/DL (8.8-10.2); CARBON DIOXIDE LEVEL 38 MEQ/L (21-32); CHLORIDE LEVEL 103 MEQ/L (98-107); CREATININE FOR GFR 1.26 MG/DL (0.55-1.30); GLOMERULAR FILTRATION RATE 43.3 (>32); GLUCOSE, FASTING 121 MG/DL (70-100); SODIUM LEVEL 142 MEQ/L (136-145)
[2017-07-19 07:58] LABS: POTASSIUM SERUM 5.2 MEQ/L (3.5-5.1)
[2017-07-19] MEDS: amLODIPine 5 MG TAB PO (09:35)
[2017-07-19] MEDS: HEPARIN SOD (PORCINE) 5000 UNITS/ML VIAL SC ×2 (09:35→21:52)
[2017-07-19] MEDS: METOPROLOL TART 50 MG TAB PEG ×2 (09:35→21:00)
[2017-07-19] MEDS: TORSEMIDE 20 MG TAB PEG (09:35)
[2017-07-19] MEDS: ISOSORBIDE MON. (ISMO,MONOKET) 20 MG TAB PEG ×2 (09:35→16:18)
[2017-07-19] MEDS: SENNA 8.6 MG TAB (SENOKOT) PEG ×2 (09:35→20:53)
[2017-07-19] MEDS: FAMOTIDINE 20 MG TAB PEG (09:35)
[2017-07-19] MEDS: CHLORHEXIDINE ORAL RINSE 0.12%/15ML 120ML BOTTLE MT ×3 (12:25→21:51)
[2017-07-19] MEDS: ACETAMINOPHEN TAB 650MG DOSE (2X325MG) PEG (18:45)
[2017-07-19] MEDS: SIMVASTATIN 10 MG TAB PEG (21:52)
[2017-07-20] MEDS: IPRATROPIUM 0.5MG/ALBUTEROL 2.5MG INH SOL UD 3ML (DUONEB)(J7620) INH ×4 (02:00→21:16)
[2017-07-20] MEDS: LEVOTHYROXINE 25MCG TABLET (0.025MG) PEG (05:58)
[2017-07-20 06:24] LABS: BASO % 0.3 % (0.0-1.0); EOS # 0.6 10^3/uL (0.0-0.50); EOS % 7.4 % (0.0-3.0); HEMOGLOBIN 8.1 g/dl (12.0-15.5); IMMATURE GRANULOCYTE % 1.7 % (0-3.0); LYMPH # 1.2 10^3/uL (1.5-4.5); LYMPH % 13.9 % (24.0-44.0); MEAN CORPUSCULAR HEMOGLOBIN 30.2 pg (27.0-33.0); MEAN CORPUSCULAR HGB CONC 31.2 g/dl (32.0-36.5); MONO # 0.6 10^3/uL (0.0-0.8); NEUTROPHILS # 6.1 10^3/uL (1.8-7.7); NEUTROPHILS % 69.7 % (36.0-66.0); PLATELET COUNT, AUTOMATED 202 10^3/uL (150-450); RED BLOOD COUNT 2.68 10^6/uL (4.00-5.40); RED CELL DISTRIBUTION WIDTH 17.4 % (11.5-14.5); WHITE BLOOD COUNT 8.7 10^3/uL (4.0-10.0)
[2017-07-20 06:40] LABS: ANION GAP 5 MEQ/L (8-16); BLOOD UREA NITROGEN 56 MG/DL (7-18); CALCIUM LEVEL 8.6 MG/DL (8.8-10.2); CARBON DIOXIDE LEVEL 34 MEQ/L (21-32); CHLORIDE LEVEL 104 MEQ/L (98-107); CREATININE FOR GFR 1.43 MG/DL (0.55-1.30); GLOMERULAR FILTRATION RATE 37.4 (>32); GLUCOSE, FASTING 104 MG/DL (70-100); POTASSIUM SERUM 4.6 MEQ/L (3.5-5.1); SODIUM LEVEL 143 MEQ/L (136-145)
[2017-07-20] MEDS: ISOSORBIDE MON. (ISMO,MONOKET) 20 MG TAB PEG ×2 (09:00→16:00)
[2017-07-20] MEDS: SENNA 8.6 MG TAB (SENOKOT) PEG ×2 (09:00→21:46)
[2017-07-20] MEDS: CHLORHEXIDINE ORAL RINSE 0.12%/15ML 120ML BOTTLE MT ×3 (09:20→21:46)
[2017-07-20] MEDS: FAMOTIDINE 20 MG TAB PEG (09:22)
[2017-07-20] MEDS: HEPARIN SOD (PORCINE) 5000 UNITS/ML VIAL SC ×2 (09:22→21:46)
[2017-07-20] MEDS: TORSEMIDE 20 MG TAB PEG (09:23)
[2017-07-20] MEDS: METOPROLOL TART 50 MG TAB PEG ×2 (09:23→21:46)
[2017-07-20] MEDS: amLODIPine 5 MG TAB PO (09:23)
[2017-07-20] MEDS: SIMVASTATIN 10 MG TAB PEG (21:46)
[2017-07-21] MEDS: IPRATROPIUM 0.5MG/ALBUTEROL 2.5MG INH SOL UD 3ML (DUONEB)(J7620) INH ×4 (01:54→20:59)
[2017-07-21] MEDS: LEVOTHYROXINE 25MCG TABLET (0.025MG) PEG (05:51)
[2017-07-21] MEDS: CHLORHEXIDINE ORAL RINSE 0.12%/15ML 120ML BOTTLE MT ×3 (09:00→20:57)
[2017-07-21] MEDS: SENNA 8.6 MG TAB (SENOKOT) PEG ×2 (09:00→20:56)
[2017-07-21] MEDS: TORSEMIDE 20 MG TAB PEG (09:19)
[2017-07-21] MEDS: METOPROLOL TART 50 MG TAB PEG ×2 (09:19→20:56)
[2017-07-21] MEDS: FAMOTIDINE 20 MG TAB PEG (09:19)
[2017-07-21] MEDS: amLODIPine 5 MG TAB PO (09:19)
[2017-07-21] MEDS: HEPARIN SOD (PORCINE) 5000 UNITS/ML VIAL SC ×2 (09:20→20:55)
[2017-07-21] MEDS: ISOSORBIDE MON. (ISMO,MONOKET) 20 MG TAB PEG ×2 (09:22→16:03)
[2017-07-21] MEDS: SIMVASTATIN 10 MG TAB PEG (20:56)
[2017-07-22] MEDS: IPRATROPIUM 0.5MG/ALBUTEROL 2.5MG INH SOL UD 3ML (DUONEB)(J7620) INH ×5 (02:00→23:50)
[2017-07-22 05:49] LABS: HEMATOCRIT 27.7 % (36.0-47.0); HEMOGLOBIN 8.5 g/dl (12.0-15.5); MEAN CORPUSCULAR HEMOGLOBIN 30.2 pg (27.0-33.0); MEAN CORPUSCULAR HGB CONC 30.7 g/dl (32.0-36.5); MEAN CORPUSCULAR VOLUME 98.6 fl (80.0-96.0); PLATELET COUNT, AUTOMATED 232 10^3/uL (150-450); RED BLOOD COUNT 2.81 10^6/uL (4.00-5.40); RED CELL DISTRIBUTION WIDTH 17.6 % (11.5-14.5); WHITE BLOOD COUNT 8.2 10^3/uL (4.0-10.0)
[2017-07-22 06:13] LABS: ANION GAP 7 MEQ/L (8-16); BLOOD UREA NITROGEN 59 MG/DL (7-18); CALCIUM LEVEL 8.7 MG/DL (8.8-10.2); CARBON DIOXIDE LEVEL 35 MEQ/L (21-32); CHLORIDE LEVEL 102 MEQ/L (98-107); CREATININE FOR GFR 1.51 MG/DL (0.55-1.30); GLOMERULAR FILTRATION RATE 35.1 (>32); GLUCOSE, FASTING 159 MG/DL (70-100); POTASSIUM SERUM 5.1 MEQ/L (3.5-5.1); SODIUM LEVEL 144 MEQ/L (136-145)
[2017-07-22] MEDS: LEVOTHYROXINE 25MCG TABLET (0.025MG) PEG (06:16)
[2017-07-22] MEDS: SENNA 8.6 MG TAB (SENOKOT) PEG ×2 (09:53→21:00)
[2017-07-22] MEDS: CHLORHEXIDINE ORAL RINSE 0.12%/15ML 120ML BOTTLE MT ×3 (09:53→22:15)
[2017-07-22] MEDS: HEPARIN SOD (PORCINE) 5000 UNITS/ML VIAL SC ×2 (09:53→22:11)
[2017-07-22] MEDS: FAMOTIDINE 20 MG TAB PEG (09:54)
[2017-07-22] MEDS: ISOSORBIDE MON. (ISMO,MONOKET) 20 MG TAB PEG ×2 (09:56→16:55)
[2017-07-22] MEDS: amLODIPine 5 MG TAB PO (09:56)
[2017-07-22] MEDS: METOPROLOL TART 50 MG TAB PEG ×2 (09:56→22:14)
[2017-07-22] MEDS: TORSEMIDE 20 MG TAB PEG (09:57)
[2017-07-22] MEDS: SIMVASTATIN 10 MG TAB PEG (22:14)
[2017-07-23] MEDS: LEVOTHYROXINE 25MCG TABLET (0.025MG) PEG (06:10)
[2017-07-23 06:28] LABS: BASO # 0.1 10^3/uL (0.0-0.2); BASO % 0.5 % (0.0-1.0); EOS # 0.5 10^3/uL (0.0-0.50); EOS % 4.7 % (0.0-3.0); HEMATOCRIT 27.4 % (36.0-47.0); HEMOGLOBIN 8.3 g/dl (12.0-15.5); IMMATURE GRANULOCYTE % 1.7 % (0-3.0); LYMPH % 10.5 % (24.0-44.0); MEAN CORPUSCULAR HEMOGLOBIN 30.2 pg (27.0-33.0); MEAN CORPUSCULAR HGB CONC 30.3 g/dl (32.0-36.5); MEAN CORPUSCULAR VOLUME 99.6 fl (80.0-96.0); MONO # 1.1 10^3/uL (0.0-0.8); MONO % 10.9 % (0.0-5.0); NEUTROPHILS # 6.9 10^3/uL (1.8-7.7); NEUTROPHILS % 71.7 % (36.0-66.0); PLATELET COUNT, AUTOMATED 249 10^3/uL (150-450); RED BLOOD COUNT 2.75 10^6/uL (4.00-5.40); RED CELL DISTRIBUTION WIDTH 17.7 % (11.5-14.5); WHITE BLOOD COUNT 9.6 10^3/uL (4.0-10.0)
[2017-07-23 06:41] LABS: ANION GAP 4 MEQ/L (8-16); BLOOD UREA NITROGEN 68 MG/DL (7-18); CALCIUM LEVEL 8.6 MG/DL (8.8-10.2); CARBON DIOXIDE LEVEL 37 MEQ/L (21-32); CHLORIDE LEVEL 101 MEQ/L (98-107); CREATININE FOR GFR 1.66 MG/DL (0.55-1.30); GLOMERULAR FILTRATION RATE 31.5 (>32); GLUCOSE, FASTING 142 MG/DL (70-100); SODIUM LEVEL 142 MEQ/L (136-145)
[2017-07-23 06:43] LABS: POTASSIUM SERUM 5.8 MEQ/L (3.5-5.1)
[2017-07-23] MEDS: IPRATROPIUM 0.5MG/ALBUTEROL 2.5MG INH SOL UD 3ML (DUONEB)(J7620) INH ×3 (07:40→22:16)
[2017-07-23] MEDS: SENNA 8.6 MG TAB (SENOKOT) PEG ×2 (09:00→21:47)
[2017-07-23] MEDS: amLODIPine 5 MG TAB PO (09:38)
[2017-07-23] MEDS: TORSEMIDE 20 MG TAB PEG (09:38)
[2017-07-23] MEDS: HEPARIN SOD (PORCINE) 5000 UNITS/ML VIAL SC ×2 (09:39→21:48)
[2017-07-23] MEDS: ISOSORBIDE MON. (ISMO,MONOKET) 20 MG TAB PEG ×2 (09:39→15:03)
[2017-07-23] MEDS: FAMOTIDINE 20 MG TAB PEG (09:39)
[2017-07-23] MEDS: METOPROLOL TART 50 MG TAB PEG ×2 (09:39→21:49)
[2017-07-23] MEDS: CHLORHEXIDINE ORAL RINSE 0.12%/15ML 120ML BOTTLE MT ×3 (09:40→21:47)
[2017-07-23] MEDS: SOD POLYSTYRENE SULFONATE SUSP 15 GM/60 ML UD PO (15:02)
[2017-07-23] MEDS: SIMVASTATIN 10 MG TAB PEG (21:49)
[2017-07-24] MEDS: IPRATROPIUM 0.5MG/ALBUTEROL 2.5MG INH SOL UD 3ML (DUONEB)(J7620) INH ×4 (04:17→20:44)
[2017-07-24] MEDS: LEVOTHYROXINE 25MCG TABLET (0.025MG) PEG (05:52)
[2017-07-24 07:09] LABS: HEMATOCRIT 24.9 % (36.0-47.0); HEMOGLOBIN 7.5 g/dl (12.0-15.5); MEAN CORPUSCULAR HEMOGLOBIN 29.6 pg (27.0-33.0); MEAN CORPUSCULAR VOLUME 98.4 fl (80.0-96.0); RED BLOOD COUNT 2.53 10^6/uL (4.00-5.40); WHITE BLOOD COUNT 9.6 10^3/uL (4.0-10.0)
[2017-07-24 07:10] LABS: BASO % 0.4 % (0.0-1.0); EOS # 0.4 10^3/uL (0.0-0.50); EOS % 3.6 % (0.0-3.0); IMMATURE GRANULOCYTE % 2.3 % (0-3.0); LYMPH # 1.1 10^3/uL (1.5-4.5); LYMPH % 11.7 % (24.0-44.0); MEAN CORPUSCULAR HGB CONC 30.1 g/dl (32.0-36.5); MONO # 1.2 10^3/uL (0.0-0.8); MONO % 12.3 % (0.0-5.0); NEUTROPHILS # 6.7 10^3/uL (1.8-7.7); NEUTROPHILS % 69.7 % (36.0-66.0); PLATELET COUNT, AUTOMATED 266 10^3/uL (150-450); RED CELL DISTRIBUTION WIDTH 17.8 % (11.5-14.5)
[2017-07-24 07:29] LABS: ANION GAP 5 MEQ/L (8-16); BLOOD UREA NITROGEN 77 MG/DL (7-18); CALCIUM LEVEL 8.3 MG/DL (8.8-10.2); CARBON DIOXIDE LEVEL 36 MEQ/L (21-32); CHLORIDE LEVEL 99 MEQ/L (98-107); CREATININE FOR GFR 1.86 MG/DL (0.55-1.30); GLOMERULAR FILTRATION RATE 27.6 (>32); GLUCOSE, FASTING 163 MG/DL (70-100); MAGNESIUM LEVEL 2.5 MG/DL (1.8-2.4); SODIUM LEVEL 140 MEQ/L (136-145)
[2017-07-24 07:31] LABS: POTASSIUM SERUM 5.3 MEQ/L (3.5-5.1)
[2017-07-24] MEDS: SOD POLYSTYRENE SULFONATE SUSP 15 GM/60 ML UD PO (09:54)
[2017-07-24] MEDS: amLODIPine 5 MG TAB PO (09:55)
[2017-07-24] MEDS: FAMOTIDINE 20 MG TAB PEG (09:55)
[2017-07-24] MEDS: METOPROLOL TART 50 MG TAB PEG ×2 (09:55→21:00)
[2017-07-24] MEDS: ISOSORBIDE MON. (ISMO,MONOKET) 20 MG TAB PEG ×2 (09:55→18:12)
[2017-07-24] MEDS: SENNA 8.6 MG TAB (SENOKOT) PEG ×2 (09:55→22:09)
[2017-07-24] MEDS: CHLORHEXIDINE ORAL RINSE 0.12%/15ML 120ML BOTTLE MT ×3 (09:56→22:08)
[2017-07-24] MEDS: ACETAMINOPHEN TAB 650MG DOSE (2X325MG) PEG (09:56)
[2017-07-24] MEDS: HEPARIN SOD (PORCINE) 5000 UNITS/ML VIAL SC ×2 (09:56→22:09)
[2017-07-24] MEDS ORDERED: CLINDAMYCIN 300 MG in APPROPRIATE DILUENT 1 EA IV (18:00)
[2017-07-24] MEDS ORDERED: VANCOMYCIN HCL 1,000 MG, VIAL MATE ADAPTER 1 EACH in D5W 250 ML IV (18:15)
[2017-07-24] MEDS: MEROPENEM INJ 500 MG in APPROPRIATE DILUENT 1 EA IV (22:08)
[2017-07-24] MEDS: SIMVASTATIN 10 MG TAB PEG (22:09)
[2017-07-25] MEDS: VANCOMYCIN HCL 1,000 MG, VIAL MATE ADAPTER 1 EACH in D5W 250 ML IV ×2 (00:16→08:11)
[2017-07-25] MEDS: IPRATROPIUM 0.5MG/ALBUTEROL 2.5MG INH SOL UD 3ML (DUONEB)(J7620) INH ×2 (02:00→07:17)
[2017-07-25] MEDS: MEROPENEM INJ 500 MG in APPROPRIATE DILUENT 1 EA IV (04:41)
[2017-07-25] MEDS: LEVOTHYROXINE 25MCG TABLET (0.025MG) PEG (05:06)
[2017-07-25 07:41] LABS: BASO # 0.1 10^3/uL (0.0-0.2); BASO % 0.5 % (0.0-1.0); EOS # 0.3 10^3/uL (0.0-0.50); EOS % 2.8 % (0.0-3.0); HEMATOCRIT 23.9 % (36.0-47.0); HEMOGLOBIN 7.3 g/dl (12.0-15.5); IMMATURE GRANULOCYTE % 2.2 % (0-3.0); LYMPH # 0.8 10^3/uL (1.5-4.5); LYMPH % 7.7 % (24.0-44.0); MEAN CORPUSCULAR HEMOGLOBIN 30.7 pg (27.0-33.0); MEAN CORPUSCULAR HGB CONC 30.5 g/dl (32.0-36.5); MEAN CORPUSCULAR VOLUME 100.4 fl (80.0-96.0); MONO # 1.3 10^3/uL (0.0-0.8); NEUTROPHILS # 7.8 10^3/uL (1.8-7.7); NEUTROPHILS % 74.8 % (36.0-66.0); PLATELET COUNT, AUTOMATED 264 10^3/uL (150-450); RED BLOOD COUNT 2.38 10^6/uL (4.00-5.40); RED CELL DISTRIBUTION WIDTH 17.8 % (11.5-14.5); WHITE BLOOD COUNT 10.4 10^3/uL (4.0-10.0)
[2017-07-25 08:00] LABS: ANION GAP 7 MEQ/L (8-16); BLOOD UREA NITROGEN 84 MG/DL (7-18); CALCIUM LEVEL 8.3 MG/DL (8.8-10.2); CARBON DIOXIDE LEVEL 34 MEQ/L (21-32); CHLORIDE LEVEL 99 MEQ/L (98-107); CREATININE FOR GFR 2.04 MG/DL (0.55-1.30); GLOMERULAR FILTRATION RATE 24.8 (>32); GLUCOSE, FASTING 118 MG/DL (70-100); MAGNESIUM LEVEL 2.9 MG/DL (1.8-2.4); SODIUM LEVEL 140 MEQ/L (136-145)
[2017-07-25] MEDS: CHLORHEXIDINE ORAL RINSE 0.12%/15ML 120ML BOTTLE MT (08:11)
[2017-07-25] MEDS: SENNA 8.6 MG TAB (SENOKOT) PEG (09:00)
[2017-07-25] MEDS ORDERED: ENTER DRUG NAME HERE (PATIENT'S OWN MED) XX (09:00)
[2017-07-25] MEDS: ISOSORBIDE MON. (ISMO,MONOKET) 20 MG TAB PEG (09:00)
[2017-07-25] MEDS: NS 1,000 ML IV (10:56)
[2017-07-25] MEDS: METOPROLOL TART 50 MG TAB PEG (11:53)
[2017-07-25] MEDS: amLODIPine 5 MG TAB PO (11:53)
[2017-07-25] MEDS: FAMOTIDINE 20 MG TAB PEG (11:53)
[2017-07-25] MEDS ORDERED: CEFTAROLINE FOSAMIL 300 MG in D5W 50 ML IV (14:00)
== END 2017-07-25 16:27 | disposition expired | DRG 871 ==
LOC: M MSPAV 07-13 10:15 → M ED 14:58 → M ED INP 18:35 → M ICU 21:49
PROC: 30253N1 (ICD-10-PCS; principal; 2017-07-10)
DX: A41.9 Sepsis, unspecified organism (principal); J69.0 Pneumonitis due to inhalation of food and vomit; J96.01 Acute respiratory failure with hypoxia; I50.32 Chronic diastolic (congestive) heart failure; I13.0 Hypertensive heart and chronic kidney disease with heart failure and stage 1 through stage 4 chronic kidney disease, or unspecified chronic kidney disease; E87.0 Hyperosmolality and hypernatremia; N17.9 Acute kidney failure, unspecified; I48.0 Paroxysmal atrial fibrillation; J45.909 Unspecified asthma, uncomplicated; Z66 Do not resuscitate; E03.9 Hypothyroidism, unspecified; R65.20 Severe sepsis without septic shock; N18.9 Chronic kidney disease, unspecified; R13.10 Dysphagia, unspecified; E87.5 Hyperkalemia; D63.1 Anemia in chronic kidney disease; E55.9 Vitamin D deficiency, unspecified; M10.9 Gout, unspecified; Z86.73 Personal history of transient ischemic attack (TIA), and cerebral infarction without residual deficits; Z93.1 Gastrostomy status; Z96.653 Presence of artificial knee joint, bilateral; Z79.899 Other long term (current) drug therapy; Z85.3 Personal history of malignant neoplasm of breast

== ENCOUNTER → 2017-07-08 | Outpatient (REF) ==
[2017-07-08 13:20] LABS: HEMATOCRIT 27.2 % (36.0-47.0); HEMOGLOBIN 8.4 g/dl (12.0-15.5); MEAN CORPUSCULAR HEMOGLOBIN 30.7 pg (27.0-33.0); MEAN CORPUSCULAR HGB CONC 30.9 g/dl (32.0-36.5); MEAN CORPUSCULAR VOLUME 99.3 fl (80.0-96.0); PLATELET COUNT, AUTOMATED 247 10^3/uL (150-450); RED BLOOD COUNT 2.74 10^6/uL (4.00-5.40); RED CELL DISTRIBUTION WIDTH 18.3 % (11.5-14.5); WHITE BLOOD COUNT 12.3 10^3/uL (4.0-10.0)
[2017-07-08 13:53] LABS: ANION GAP 9 MEQ/L (8-16); BLOOD UREA NITROGEN 59 MG/DL (7-18); CALCIUM LEVEL 8.3 MG/DL (8.8-10.2); CARBON DIOXIDE LEVEL 28 MEQ/L (21-32); CHLORIDE LEVEL 101 MEQ/L (98-107); GLOMERULAR FILTRATION RATE 32.9 (>32); GLUCOSE, FASTING 174 MG/DL (70-100); NT-PRO BNP 20092 PG/ML (<450); SODIUM LEVEL 138 MEQ/L (136-145); URIC ACID 5.2 MG/DL (2.6-6.0)
[2017-07-08 14:01] LABS: POTASSIUM SERUM 5.4 MEQ/L (3.5-5.1)
== END ==
DX: D64.9 Anemia, unspecified (principal)